=== PATIENT | male | born 1945 | race Caucasian/White ===

== ENCOUNTER → 2017-03-13 | Outpatient (CLI) | payer MEDICARE, BC ==
--- NOTE | 2017-03-13 09:58 | RADIOLOGY REPORT (SQ) ---
EXAM DESCRIPTION: MRI LT UPPER JOINT WITHOUT COMPLETED DATE/TIME: 03/13/2017 9:41 am REASON FOR STUDY: M25.512 PAIN IN LEFT SHOULDER M25.512 PAIN IN LEFT SHOULDER COMPARISON: None. TECHNIQUE: Left shoulder images acquired and stored on PACS. Multiplanar imaging to include fat sens itive sequences such as T1, water sensitive sequences such as FST2/STIR, cartilage sensitive sequence s such as FSPD/gradient-echo sequences. LIMITATIONS: None. FINDINGS: BONE MARROW AND CORTEX: Mild artifact in the humeral head related to previous cuff surgery . Heterogeneous somewhat geographic appearing signal in the superior humeral head may reflect subtle AVN, somewhat serpiginous signal without overlying fracture or articular surface collapse. JOINT OR BURSAL EFFUSION: No significant joint or bursal fluid. No suggestion of loose bodies. GLENO-HUMERAL ARTICULATION: Superior migration humeral head. Mild inferior humeral osteophyte format ion. Areas of chondral thinning, most notable in the central glenoid and along the superior humeral head. ACROMION AND AC JOINT: No widening. Osseous remodeling of the undersurface of the acromion, comple te loss of the subacromial space. ROTATOR CUFF AND INTERVAL: Full-thickness full width cuff tear, supraspinatus and infraspinatus. Pro bable atrophy, however given the degree of retraction this is difficult to further assess. LABRUM AND BICEPS LABRAL COMPLEX: Limited assessment given the complete cuff tear, loss of the uppe r joint space and lack of joint distention. Probable torn superior labrum. Suspect biceps tendon is intact, but difficult to visualize. REMAINDER OF LABRUM AND IGHL : Tear likely extends into the posterior and inferior labrum. No gross paralabral cyst. PERIARTICULAR AND ADJACENT SOFT TISSUES: No masses or abnormal nodes. OTHER: No other significant finding. IMPRESSION: 1. Full-thickness full with recurrent rotator cuff tear with atrophy and retraction. 2. Poor assessment of the superior labrum. Suspect SLAP tear. Biceps tendon is likely intact. Tear o f the posterior and inferior labrum also likely. TECHNICAL DOCUMENTATION: JOB ID: [id number] [employer]- All Rights Reserved
== END ==
LOC: RAD 08:46
PROVIDERS: ATTEND Orthopaedic Surgery Sports Medicine
DX: M25.512 Pain in left shoulder (principal); M75.122 Complete rotator cuff tear or rupture of left shoulder, not specified as traumatic

== ENCOUNTER 2018-01-06 05:21 | Day surgery (SDC) | payer MEDICARE, BC ==
[~2018-01-06 05:21] MED LIST: ACETAMINOPHEN 325 MG TABLET PO PRN; CEFAZOLIN 1 GM/D5W RTU 1 GM/50 ML RTUPB IV PRN
[2018-01-06] MEDS ORDERED: CEFAZOLIN 1 GM/D5W RTU 1 GM/50 ML RTUPB IV ONE (05:41)
--- NOTE | 2018-01-06 06:08 | RADIOLOGY REPORT (SQ) ---
EXAM DESCRIPTION: X-ray single view chest. CLINICAL HISTORY: 72 years Male, preop port placement COMPARISON: None. TECHNIQUE: Single portable view of the chest performed on 01/06/2018 at 6:00 AM FINDINGS: The lungs are well expanded and are clear. There are pleural calcifications along the diaphragmatic surface of the left hemithorax and there are pleural plaques projecting over the right hemithorax. There is no evidence of a pneumothorax. The cardiac silhouette is normal in size and configuration. There are atherosclerotic calcifications along the thoracic aorta. The mediastinal contours are normal. No acute osseous abnormality is identified. No focal soft tissue abnormalities are seen. Lines and tubes: None. IMPRESSION: 1. No definite acute intrathoracic disease. 2. 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
[2018-01-06] MEDS ORDERED: ONDANSETRON HCL INJ/PF 4 MG/2 ML SDV ONE (06:15)
[2018-01-06] MEDS ORDERED: LIDOCAINE 2% INJ-PF (20 MG/ML) 10 ML AMPUL ONE (06:15)
[2018-01-06] MEDS ORDERED: MIDAZOLAM 2 MG/2 ML INJ ONE (06:15)
[2018-01-06] MEDS ORDERED: FENTANYL CITRATE INJ/PF 100 MCG/2 ML AMPUL ONE (06:15)
[2018-01-06] MEDS ORDERED: PROPOFOL INJ 200 MG/20 ML VIAL IV ONE (06:16)
[2018-01-06] MEDS ORDERED: FENTANYL CITRATE INJ/PF 100 MCG/2 ML AMPUL IV PRN ×3 (06:56)
[2018-01-06] MEDS ORDERED: MORPHINE SULFATE 10 MG/ML INJ IV PRN (06:56)
[2018-01-06] MEDS ORDERED: DIPHENHYDRAMINE HCL 50 MG/ML VIAL IV PRN (06:56)
[2018-01-06] MEDS ORDERED: MEPERIDINE HCL/PF INJ 25 MG/1 ML DISP.SYRIN IV PRN (06:56)
[2018-01-06] MEDS ORDERED: PROMETHAZINE HCL INJ 25 MG/1 ML VIAL IV PRN ×2 (06:56)
[2018-01-06] MEDS ORDERED: ONDANSETRON HCL INJ/PF 4 MG/2 ML SDV IV PRN (06:56)
[2018-01-06] MEDS ORDERED: LIDOCAINE 1%/EPINEPHRINE INJ 20 ML VIAL ONE (07:21)
[2018-01-06 07:31] LABS: ABSOLUTE EOSINOPHILS # (AUTO) 0.5 10^3/uL (0.0-0.6); ABSOLUTE LYMPHOCYTES (AUTO) 1.2 10^3/uL (0.5-4.7); ABSOLUTE MONOCYTES (AUTO) 1.1 10^3/uL (0.1-1.4); ABSOLUTE NEUT (AUTO) 9.4 10^3/uL (1.7-8.2); BASOPHILS % (AUTO) 0.3 % (0-2); EOSINOPHILS % (AUTO) 3.9 % (0-6); HEMATOCRIT 26.7 % (37.9-51.0); LYMPHOCYTES % (AUTO) 9.8 % (13-45); MEAN CORPUSCULAR HGB CONC 33.6 g/dL (32.0-36.0); MEAN CORPUSCULAR VOLUME 92 fl (80-97); MONOCYTES % (AUTO) 9.3 % (3-13); PLATELET COUNT 390 10^3/uL (150-450); RED BLOOD COUNT 2.89 10^6/uL (4.35-5.55); SEGMENTED NEUTROPHILS % (AUTO) 76.7 % (42-78); TOTAL CELLS COUNTED % (AUTO) 100 %; WHITE BLOOD COUNT 12.3 10^3/uL (4.0-10.5)
--- NOTE | 2018-01-06 08:12 | Discharge Summary ---
Discharge Summary (SDC) - Discharge Final Diagnosis: Pancreatic carcinoma Date of Surgery: 01/06/18 Discharge Date: 01/06/18 Condition: Good Treatment or Instructions: May use catheter this week; follow-up with [facility] in 1-2 weeks; resume preoperative activities as previously planned Referrals: MARIKA RIGGS MD [Primary Care Provider] - Discharge Diet: As Tolerated Discharge Activity: Activity As Tolerated Home Care Assistance: None Needed Report the Following to Your Physician Immediately: Shortness of Breath, Increase in Pain, Fever over 101 Degrees
--- NOTE | 2018-01-06 08:16 | Operative Report ---
Operative Report DATE OF SURGERY: 01/06/18 PREOPERATIVE DIAGNOSIS: Pancreatic carcinoma POSTOPERATIVE DIAGNOSIS: Same OPERATION: 1. Placement of left subclavian Gfydxi-[id number]-Gtnk catheter, dual- chamber. 2. Interpretation of intraoperative fluoroscopy SURGEON: COOKIE RIVERA ANESTHESIA: LMAC TISSUE REMOVED OR ALTERED: None COMPLICATIONS: None ESTIMATED BLOOD LOSS: Scant INTRAOPERATIVE FINDINGS: See below PROCEDURE: Patient was taken from the preop holding area the main operating room where he was placed in supine position, arms tucked, cervical spine extended, and the chest and neck prepped and draped in sterile fashion. Surgical plan surgical timeout were conducted. Suitable site for placement of port was chosen left subclavian position. Skin was anesthetized with plain 1 percent lidocaine. Using Seldinger technique, the left subclavian vein was directly cannulated with a 16-gauge needle and a wire threaded into the deep venous system. A suitable site for placement of the port was chosen below this area proximal 0.4 cm. Skin was anesthetized with 1% plain lidocaine, a 3 cm incision was made horizontally with a #10 blade, and a port pocket developed large enough to accommodate dual-chamber port was developed using electrocautery, blunt dissection. The 9 [place] catheter was then trimmed to the appropriate length, tunnel between the 2 incisions, attached to the port with the plastic ring, and the port tucked into the left subclavian pocket. Under fluoroscopic guidance, the 9 [place]ian dilator introducer sheath were threaded over the wire, wire and dilator removed, threaded into the strip away sheath and strip away sheath removed leaving the catheter in excellent position by fluoroscopic evaluation. The tip was in the superior vena cava right atrial junction there was no kinking in the subclavian area. Catheter was aspirated and flushed with heparinized saline. There was good blood flow through both lumens. Wounds closed with 3-0 Vicryl benzoin Steri- Strips. Patient tolerated procedure well, taken recovery in stable condition. Portable upright chest x-ray pending time dictation
--- NOTE | 2018-01-06 09:11 | RADIOLOGY REPORT (SQ) ---
EXAM DESCRIPTION: CHEST SINGLE VIEW COMPLETED DATE/TIME: 01/06/2018 8:36 am REASON FOR STUDY: s/p cxr COMPARISON: 01/06/2018 EXAM PARAMETERS: NUMBER OF VIEWS: One view. TECHNIQUE: Single frontal radiographic view of the chest acquired. RADIATION DOSE: NA LIMITATIONS: None. FINDINGS: LUNGS AND PLEURA: No opacities, masses or pneumothorax. No pleural effusion. Calcified pl eural plaques are again identified overlying the left hemidiaphragm. Pleural plaques are again ident ified in the right hemithorax. MEDIASTINUM AND HILAR STRUCTURES: No masses. Contour normal. HEART AND VASCULAR STRUCTURES: Heart normal in size. Normal vasculature. BONES: No acute findings. HARDWARE: Port-A-Cath is identified with its tip the level of the superior vena cava P OTHER: No other significant finding. IMPRESSION: Status post insertion of a Port-A-Cath as noted above. No pneumothorax is seen. Other findings as noted above TECHNICAL DOCUMENTATION: JOB ID: [id number] [employer]- All Rights Reserved Reading location - IP/workstation name: [email or web address]
--- NOTE | 2018-01-06 09:31 | RADIOLOGY REPORT (SQ) ---
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 FLUOROSCOPY TIME: 0.1 minute Spot images saved to PACS. TECHNIQUE: Intra-operative images acquired during surgical procedure to evaluate progress. NUMBER OF IMAGES: 3 LIMITATIONS: None. FINDINGS: Fluoroscopy was provided for intraoperative procedure. Please refer to the operative repo rt for further discussion. IMPRESSION: IMAGE(S) OBTAINED DURING PROCEDURE. COMMENT: Quality ID 145: Final reports for procedures using fluoroscopy that document radiation exp osure indices, or exposure time and number of fluorographic images (if radiation exposure indices are not available) Please consult full operative report of the attending physician for description of the procedure. TECHNICAL DOCUMENTATION: JOB ID: [id number] [employer]- All Rights Reserved Reading location - IP/workstation name: [email or web address]
[2018-01-06 10:52] VITALS: BP 126/73
== END 2018-01-06 09:55 | disposition home or self-care (01) ==
LOC: OROUT 05:21
PROVIDERS: ATTEND Surgery
DX: C25.9 Malignant neoplasm of pancreas, unspecified (principal); Z96.642 Presence of left artificial hip joint; E78.00 Pure hypercholesterolemia, unspecified; R01.1 Cardiac murmur, unspecified; M19.90 Unspecified osteoarthritis, unspecified site; N50.9 Disorder of male genital organs, unspecified; E11.9 Type 2 diabetes mellitus without complications; I10 Essential (primary) hypertension; Z87.891 Personal history of nicotine dependence; Z79.82 Long term (current) use of aspirin; Z79.899 Other long term (current) drug therapy
CPT/HCPCS: 36561; 36415; 82947; 85025; 71045; 77001; C1788; C1752; J2250; J0690; J3010; J3490 ×2; J2405; J2704; J1642; 532

== ENCOUNTER → 2018-02-18 | Outpatient (CLI) | payer MEDICARE, BC ==
--- NOTE | 2018-02-18 14:30 | RADIOLOGY REPORT (SQ) ---
EXAM DESCRIPTION: CT CHEST WITH; CT ABD/PELVIS WITH IV ORAL COMPLETED DATE/TIME: 02/18/2018 1:50 pm REASON FOR STUDY: PANCREATIC CA (C25.0) C25.0 MALIGNANT NEOPLASM OF HEAD OF PANCREAS abnormal liver function tests, increasing bilirubin COMPARISON: MRI abdomen 11/25/2017 [facility] CT chest without contrast 11/14/2017, 03/03/2015 [facility] CT abdomen pelvis 12/01/2013 here CONTRAST TYPE AND DOSE: contrast/concentration: Isovue 350.00 mg/ml; Total Contrast Delivered: 100.0 ml; Total Saline Delivered: 72.0 ml RENAL FUNCTION: Creatinine 0.7 TECHNIQUE: CT scan of the chest performed using helical scanning technique with dynamic intravenous contrast injection. Images reviewed with lung, soft tissue and bone windows. Reconstructed coronal a nd sagittal MPR images reviewed. All images stored on PACS. CT scan of the abdomen and pelvis performed with intravenous and without oral contrastusing helical s rimma technique with dynamic intravenous contrast injection. Images reviewed with lung, soft tissu e and bone windows. Reconstructed coronal and sagittal MPR images reviewed. Delayed images for eval uation of the urinary system also acquired and evaluated. All images stored on PACS. All CT scanners at this facility use dose modulation, iterative reconstruction, and/or weight based d osing when appropriate to reduce radiation dose to as low as reasonably achievable (ALARA). [facility]: Dose Right [facility]: CareDose [facility]: Dose Right [facility]: Teradose 4D [facility]: Smart Technologies RADIATION DOSE: CT Rad equipment meets quality standard of care and radiation dose reduction techniq ues were employed. CTDIvol: 9.1 - 11.8 mGy. DLP: 1693 mGy-cm. . LIMITATIONS: None. FINDINGS: CHEST: LUNGS AND PLEURA: No acute infiltrates. No pleural effusion or pneumothorax. No worrisome pulmonary nodules. On axial image 54, a 6 mm benign nodule in the right lower lobe is u nchanged from studies dating back to 2014. There are multiple dense pleural calcific plaques bilaterally unchanged. HILAR AND MEDIASTINAL STRUCTURES: No identified masses or abnormal nodes. HEART AND VASCULAR STRUCTURES: Calcified aortic valve and coronary arteries. No cardiomegaly. No pe ricardial effusion HARDWARE: Left permanent central line tip superior vena cava. THYROID AND OTHER SOFT TISSUES: No masses. No adenopathy. BONES: No significant finding. OTHER: Small hiatal hernia. ABDOMEN AND PELVIS: LIVER: There is new intrahepatic moderate biliary ductal dilatation compared to previous studies. Ga llbladder is distended. Common bile duct is distended down to the pancreatic head mass. On axial series 3, image 9/103, a 12 mm nodule is present in the sub- diaphragmatic surface left lobe liver. It is difficult to discern if this is a new finding, prior MRI has motion artifact, prior CT chest exam did not have IV contrast. SPLEEN: Normal size. No focal lesions. PANCREAS: In the pancreatic head, a 4.4 x 4.1 cm mass is present on axial image 26/103 (was 2.8 cm di ameter on CT chest 11/14/2017). This effaces the distal common bile duct. Remainder the pancreas is atrophic with a dilated pancreatic duct. No peripancreatic fluid worrisome for acute pancreatitis. There is mild narrowing of the superior mesenteric vein as it passes around the tumor at the pancreat ic head. There are surgical metallic clips in the pancreatic head on axial image 26. GALLBLADDER: Distended. No gallbladder wall thickening or gross CT evidence of stones ADRENAL GLANDS: No significant masses or asymmetry. RIGHT KIDNEY AND URETER: No solid masses. Multiple small right-sided intrarenal nonobstructive calcu li are present. No hydronephrosis or hydroureter. LEFT KIDNEY AND URETER: No solid masses. Multiple small right-sided intrarenal nonobstructive calcul i are present. No hydronephrosis or hydroureter. AORTA AND VESSELS: No aneurysm. No dissection. Renal arteries, SMA, celiac without stenosis. RETROPERITONEUM: No retroperitoneal adenopathy, hemorrhage or masses. BOWEL AND PERITONEAL CAVITY: No masses or inflammatory changes. No free fluid or peritoneal masses. APPENDIX: Normal. ABDOMINAL WALL: No masses. No hernias. PELVIS: No mass or free fluid. Normal bladder. BONES: No significant or acute findings. OTHER: No other significant finding. IMPRESSION: Enlargement of the pancreatic tumor with mass effect on the distal common bile duct, wit h new biliary ductal dilatation and distention of the gallbladder. 12 mm nodule sub- diaphragmatic surface left lobe liver worrisome for liver metastatic nodule No CT evidence of metastatic disease to the chest TECHNICAL DOCUMENTATION: JOB ID: [id number] Quality ID # 436: Final reports with documentation of one or more dose reduction techniques (e.g., Au tomated exposure control, adjustment of the mA and/or kV according to patient size, use of iterative reconstruction technique) 2010 [employer]- All Rights Reserved Reading location - IP/workstation name: [email or web address]
== END ==
LOC: RAD 12:57
PROVIDERS: ATTEND Internal Medicine
DX: C25.0 Malignant neoplasm of head of pancreas (principal); N20.0 Calculus of kidney
CPT/HCPCS: 71260; 74177

== ENCOUNTER → 2018-04-29 | Outpatient (CLI) | payer MEDICARE, BC ==
--- NOTE | 2018-04-29 08:41 | RADIOLOGY REPORT (SQ) ---
EXAM DESCRIPTION: CT CHEST WITH; CT ABD/PELVIS WITH IV ORAL COMPLETED DATE/TIME: 04/29/2018 8:17 am REASON FOR STUDY: PANCREATIC CA (C25.0) C25.0 MALIGNANT NEOPLASM OF HEAD OF PANCREAS COMPARISON: CT chest abdomen pelvis 02/18/2018 CT abdomen pelvis 12/01/2013 CONTRAST TYPE AND DOSE: contrast/concentration: Isovue 350.00 mg/ml; Total Contrast Delivered: 100.0 ml; Total Saline Delivered: 72.0 ml RENAL FUNCTION: Creatinine 0.82 TECHNIQUE: CT scan of the chest performed using helical scanning technique with dynamic intravenous contrast injection. Images reviewed with lung, soft tissue and bone windows. Reconstructed coronal a nd sagittal MPR images reviewed. All images stored on PACS. CT scan of the abdomen and pelvis performed with intravenous and with oral contrastusing helical scan jorge technique with dynamic intravenous contrast injection. Images reviewed with lung, soft tissue a nd bone windows. Reconstructed coronal and sagittal MPR images reviewed. Delayed images for evaluat ion of the urinary system also acquired and evaluated. All images stored on PACS. All CT scanners at this facility use dose modulation, iterative reconstruction, and/or weight based d osing when appropriate to reduce radiation dose to as low as reasonably achievable (ALARA). [facility]: Dose Right [facility]: CareDose [facility]: Dose Right [facility]: Teradose 4D [facility]: Smart [employer] RADIATION DOSE: CT Rad equipment meets quality standard of care and radiation dose reduction techniq ues were employed. CTDIvol: 8.5 - 11.8 mGy. DLP: 1647 mGy-cm. . LIMITATIONS: None. FINDINGS: CHEST: LUNGS AND PLEURA: Calcific pleural plaques bilaterally. No worrisome pulmonary nodules. No acute in filtrate. No pleural effusion or pneumothorax. HILAR AND MEDIASTINAL STRUCTURES: No identified masses or abnormal nodes. Small hiatal hernia. HEART AND VASCULAR STRUCTURES: No aneurysm or dissection. No central pulmonary emboli. No pericardi al effusion. Heavily calcified coronary arteries and aortic valve. HARDWARE: None. THYROID AND OTHER SOFT TISSUES: No masses. No adenopathy. BONES: No significant finding. OTHER: No other significant finding. ABDOMEN AND PELVIS: LIVER: Normal size. No masses. No dilated ducts. There is air within biliary structures left lobe l iver related to a patent wall stent in the common duct SPLEEN: Normal size. No focal lesions. PANCREAS: 4 x 4 cm pancreatic head mass is essentially unchanged accounting for differences in techni que as compared to 02/18/2018. Wall stent through the pancreatic head is patent. The pancreatic body and tail is atrophic without surrounding inflammatory change GALLBLADDER: No identified stones by CT criteria. No inflammatory changes to suggest cholecystitis. ADRENAL GLANDS: No significant masses or asymmetry. RIGHT KIDNEY AND URETER: No solid masses. Multiple tiny less than 5 mm intrarenal nonobstructive kid morgan stones. No hydronephrosis or hydroureter. LEFT KIDNEY AND URETER: No solid masses. 1 cm cyst left mid pole kidney. Multiple tiny less than 5 mm intrarenal nonobstructive kidney stones. No hydronephrosis or hydroureter. AORTA AND VESSELS: No aneurysm. No dissection. Renal arteries, SMA, celiac without stenosis. RETROPERITONEUM: No retroperitoneal adenopathy, hemorrhage or masses. BOWEL AND PERITONEAL CAVITY: Patient drank oral contrast. No CT evidence of bowel obstruction. Mode rate stool throughout the colon APPENDIX: Normal. ABDOMINAL WALL: No masses. No hernias. PELVIS: No mass or free fluid. Normal bladder. BONES: Left total hip replacement OTHER: No other significant finding. IMPRESSION: Persistent stable pancreatic head mass with wall stent in the distal common duct. No CT evidence of distant metastatic disease TECHNICAL DOCUMENTATION: JOB ID: [id number] Quality ID # 436: Final reports with documentation of one or more dose reduction techniques (e.g., Au tomated exposure control, adjustment of the mA and/or kV according to patient size, use of iterative reconstruction technique) 2010 [employer]- All Rights Reserved Reading location - IP/workstation name: [email or web address]
== END ==
LOC: RAD 07:35
PROVIDERS: ATTEND Internal Medicine Hematology & Oncology
DX: C25.0 Malignant neoplasm of head of pancreas (principal)
CPT/HCPCS: 71260; 74177

== ENCOUNTER → 2018-10-13 | Outpatient (CLI) | payer MEDICARE, BC ==
--- NOTE | 2018-10-13 15:13 | RADIOLOGY REPORT (SQ) ---
EXAM DESCRIPTION: CT CHEST WITH COMPLETED DATE/TIME: 10/13/2018 9:54 am REASON FOR STUDY: (C25.0)MALIGNANT NEOPLASM OF HEAD AND PANCREAS C25.0 MALIGNANT NEOPLASM OF HEAD O F PANCREAS COMPARISON: 07/14/2018 TECHNIQUE: CT scan of the chest performed using helical scanning technique with dynamic intravenous contrast injection. Images reviewed with lung, soft tissue and bone windows. Reconstructed coronal and sagittal MPR and MIP images reviewed. All images stored on PACS. All CT scanners at this facility use dose modulation, iterative reconstruction, and/or weight based d osing when appropriate to reduce radiation dose to as low as reasonably achievable (ALARA). [facility]: Dose Right [facility]: CareDose [facility]: Dose Right [facility]: Teradose 4D [facility]: [employer] CONTRAST TYPE AND DOSE: 100 mL Omnipaque 350- low osmolar. RENAL FUNCTION: Creatinine 0.8 RADIATION DOSE: . LIMITATIONS: None. FINDINGS: LUNGS AND PLEURA: Calcified pleural plaques. There is a 6 x 10 mm nodule in the left base on image 95. There is mild bronchiectasis in the lower lobes. HILAR AND MEDIASTINAL STRUCTURES: No identified masses or abnormal nodes. HEART AND VASCULAR STRUCTURES: No aneurysm or dissection. No central pulmonary emboli. No pericardi al effusion. HARDWARE: Injection port on the left. UPPER ABDOMEN: See separate report of the CT of the abdomen. THYROID AND OTHER SOFT TISSUES: No masses. No adenopathy. BONES: No significant finding. OTHER: No other significant finding. IMPRESSION: There is a 6 x 10 mm left lower lobe nodule that is not identified on the earlier study. Calcified pleural plaques. Mild bronchiectasis. TECHNICAL DOCUMENTATION: JOB ID: [id number] Quality ID # 436: Final reports with documentation of one or more dose reduction techniques (e.g., Au tomated exposure control, adjustment of the mA and/or kV according to patient size, use of iterative reconstruction technique) 2010 [employer]- All Rights Reserved Reading location - IP/workstation name: [email or web address]
--- NOTE | 2018-10-13 15:24 | RADIOLOGY REPORT (SQ) ---
EXAM DESCRIPTION: CT ABD/PELVIS WITH IV ORAL COMPLETED DATE/TIME: 10/13/2018 9:54 am REASON FOR STUDY: (C25.0)MALIGNANT NEOPLASM OF HEAD AND PANCREAS C25.0 MALIGNANT NEOPLASM OF HEAD O F PANCREAS COMPARISON: 07/14/2018 TECHNIQUE: CT scan of the abdomen and pelvis performed using helical scanning technique with dynamic intravenous contrast injection. Oral contrast. Images reviewed with lung, soft tissue, and bone win dows. Reconstructed coronal and sagittal MPR images reviewed. Delayed images for evaluation of the ur inary system also acquired. All images stored on PACS. All CT scanners at this facility use dose modulation, iterative reconstruction, and/or weight based d osing when appropriate to reduce radiation dose to as low as reasonably achievable (ALARA). [facility]: Dose Right [facility]: CareDose [facility]: Dose Right [facility]: Teradose 4D [facility]: [employer] CONTRAST TYPE AND DOSE: contrast/concentration: Isovue 350.00 mg/ml; Total Contrast Delivered: 100.0 ml; Total Saline Delivered: 72.0 ml RENAL FUNCTION: Creatinine 0.8 RADIATION DOSE: CT Rad equipment meets quality standard of care and radiation dose reduction techniq ues were employed. CTDIvol: 10.2 - 14.9 mGy. DLP: 2118 mGy-cm.. LIMITATIONS: None. FINDINGS: LOWER CHEST: No significant findings. No nodules or infiltrates. LIVER: No masses. There is air in the ducts secondary to the presence a common bile duct stent. SPLEEN: Normal size. No focal lesions. PANCREAS: The mass in the head of the pancreas measures 17.9 x 21 mm. The body and tail of the pancr eas are atrophic. GALLBLADDER: No identified stones by CT criteria. No inflammatory changes to suggest cholecystitis. ADRENAL GLANDS: No significant masses or asymmetry. RIGHT KIDNEY AND URETER: No solid masses. There are tiny nonobstructing intrarenal calculi. No hy dronephrosis or hydroureter. LEFT KIDNEY AND URETER: No solid masses. There are tiny nonobstructing intrarenal calculi. No hyd ronephrosis or hydroureter. AORTA AND VESSELS: No aneurysm. No dissection. Renal arteries, SMA, celiac without stenosis. RETROPERITONEUM: No retroperitoneal adenopathy, hemorrhage or masses. BOWEL AND PERITONEAL CAVITY: No masses or inflammatory changes. No free fluid or peritoneal masses. APPENDIX: Normal. PELVIS: No mass. No free fluid. Normal bladder. ABDOMINAL WALL: No masses. No hernias. BONES: Left hip arthroplasty. No osseous lesions. OTHER: No other significant finding. IMPRESSION: The mass in the head of the pancreas appears slightly smaller. Findings as described. TECHNICAL DOCUMENTATION: JOB ID: [id number] Quality ID # [id number]: Final reports with documentation of one or more dose reduction techniques (e.g., Au tomated exposure control, adjustment of the mA and/or kV according to patient size, use of iterative reconstruction technique) 2010 [employer]- All Rights Reserved Reading location - IP/workstation name: [email or web address]
== END ==
LOC: RAD 09:33
PROVIDERS: ATTEND Physician Assistant Medical
DX: C25.0 Malignant neoplasm of head of pancreas (principal)
CPT/HCPCS: 71260; 74177; 82565

== ENCOUNTER 2019-02-20 11:17 | Inpatient (IN) | payer MEDICARE, BC ==
--- NOTE | 2019-02-20 11:52 | ER Document Report ---
ED Medical Screen (RME) - General Chief Complaint: Fever Stated Complaint: FEVER/POST SURGERY Time Seen by Provider: 02/20/19 11:46 Primary Care Provider: JOSE D GUY PA-C [Primary Care Provider] - Follow up as needed Notes: Patient is a 73-year-old male with a history of pancreatic cancer and diabetes who presents emergency department with a chief complaint of fever. Patient reports waking up this morning with 100.3 fever. Patient reports he did take Tylenol. Patient reports his last chemotherapy was January 22 as he was told he had to stop because he is having surgery at [place] on the March 05. Patient reports since starting chemo his heart rate is always elevated in the 130s. Patient denies chest pain, shortness of breath, abdominal pain, nausea, vomiting or diarrhea. Patient denies sick contacts. TRAVEL OUTSIDE OF THE [place] IN LAST 30 DAYS: No - Related Data Allergies/Adverse Reactions: No Known Allergies Allergy (Verified 01/06/18 06:05) Past Medical History - Social History Chew tobacco use (# tins/day): No Frequency of alcohol use: Rare Drug Abuse: None - Past Medical History Cardiac Medical History: Reports: Hx Hypercholesterolemia, Hx Hypertension - ON MEDS Denies: Hx Atrial Fibrillation, Hx Congestive Heart Failure, Hx Coronary Artery Disease, Hx Heart Attack, Hx Peripheral Vascular Disease, Hx Heart Murmur Pulmonary Medical History: Reports: Hx Pneumonia - 30 YEARS AGO Denies: Hx Asthma, Hx Bronchitis, Hx COPD, Hx Tuberculosis Neurological Medical History: Denies: Hx Cerebrovascular Accident, Hx Seizures Endocrine Medical History: Renal/ Medical History: Malignancy Medical History: GI Medical History: Denies: Hx Hepatitis, Hx Hiatal Hernia, Hx Ulcer Musculoskeltal Medical History: Reports Hx Arthritis - MILD Psychiatric Medical History: Traumatic Medical History: Infectious Medical History: Denies: Hx Hepatitis Past Surgical History: Reports: Hx Herniorrhaphy - Lt inguinal hernia, Hx Orthopedic Surgery - left shoulder, left hip replacement 06/04/11. Denies: Hx Appendectomy, Hx Bowel Surgery, Hx Cholecystectomy, Hx Coronary Artery Bypass Graft, Hx Gastric Bypass Surgery, Hx Open Heart Surgery, Hx Pacemaker, Hx Tonsillectomy - Immunizations Hx Diphtheria, Pertussis, Tetanus Vaccination: Yes Physical Exam - Vital signs Vitals: Temp Pulse Resp BP Pulse Ox 98.0 F 128 H 20 134/64 H 94 02/20/19 11:22 12/06/19 11:22 02/20/19 11:22 02/20/19 11:22 02/20/19 11:22 Course - Re-evaluation Re-evalutation: 02/20/19 11:52 I have greeted and performed a rapid initial assessment of this patient. A comprehensive ED assessment and evaluation of the patient, analysis of test re sults and completion of the medical decision making process will be conducted by additional ED providers. - Vital Signs Vital signs: Temp Pulse Resp BP Pulse Ox 98.0 F 128 H 20 134/64 H 94 02/20/19 11:38 02/20/19 11:38 02/20/19 11:38 02/20/19 11:38 02/20/19 11:38 Doctor's Discharge - Discharge Referrals: JOSE D GUY, PACatarinaC [Primary Care Provider] - Follow up as needed
[2019-02-20 12:27] LABS: APPEARANCE,URINE CLEAR; BILIRUBIN,URINE NEGATIVE (NEGATIVE); COLOR,URINE YELLOW; GLUCOSE, URINE NEGATIVE (NEGATIVE); KETONES,URINE NEGATIVE (NEGATIVE); LEUKOCYTE ESTERASE,URINE NEGATIVE (NEGATIVE); NITRITE,URINE NEGATIVE (NEGATIVE); PROTEIN,URINE NEGATIVE (NEGATIVE); URINE SPECIFIC GRAVITY 1.017; UROBILINOGEN,URINE NEGATIVE mg/dL (<2.0)
[2019-02-20 12:34] LABS: HEMOGLOBIN 12.9 g/dL (13.5-17.0); MEAN CORPUSCULAR HEMOGLOBIN 29.7 pg (27.0-33.4); MEAN CORPUSCULAR HGB CONC 33.1 g/dL (32.0-36.0); MEAN CORPUSCULAR VOLUME 90 fl (80-97); PLATELET COUNT 282 10^3/uL (150-450); RED BLOOD COUNT 4.34 10^6/uL (4.35-5.55); RED CELL DISTRIBUTION WIDTH 18.8 % (11.5-14.0); WHITE BLOOD COUNT 16.4 10^3/uL (4.0-10.5)
[2019-02-20 12:47] LABS: ALBUMIN 4.1 g/dL (3.5-5.0); ALKALINE PHOSPHATASE 159 U/L (38-126); ANION GAP 13 (5-19); ASPARTATE AMINO TRANSFERASE 34 U/L (17-59); BILIRUBIN,DIRECT 0.1 mg/dL (0.0-0.4); BILIRUBIN,TOTAL 0.6 mg/dL (0.2-1.3); BLOOD UREA NITROGEN 21 mg/dL (7-20); CALCIUM 9.3 mg/dL (8.4-10.2); CARBON DIOXIDE 25 mmol/L (22-30); CHLORIDE 100 mmol/L (98-107); GLUCOSE 173 mg/dL (75-110); POTASSIUM 4.2 mmol/L (3.6-5.0); TOTAL PROTEIN 7.1 g/dL (6.3-8.2)
[2019-02-20 12:55] LABS: ABSOLUTE LYMPHOCYTES# (MANUAL) 1.3 10^3/uL (0.5-4.7); BASOPHILS % (MANUAL) 1 % (0-2); EOSINOPHILS % (MANUAL) 0 % (0-6); LYMPHOCYTES % (MANUAL) 8 % (13-45); MONOCYTES % (MANUAL) 6 % (3-13); SEGMENTED NEUTROPHILS % (MAN) 85 % (42-78); TOTAL CELLS COUNTED 100
[2019-02-20 12:56] LABS: ANISOCYTOSIS 2+
[2019-02-20 12:57] LABS: RBC MORPHOLOGY COMMENT NORMO-CYTIC/CHROMIC
[2019-02-20 12:58] LABS: PLATELET COMMENT ADEQUATE
[2019-02-20] MEDS ORDERED: NORMAL SALINE 1000 ML 3,000 ML IV ONE (16:25)
[2019-02-20] MEDS ORDERED: VANCOMYCIN HCL INJ 1000 MG VIAL IV ONE (16:27)
--- NOTE | 2019-02-20 16:32 | ER Document Report ---
ED General - General Chief Complaint: Fever Stated Complaint: FEVER/POST SURGERY Time Seen by Provider: 02/20/19 11:46 Primary Care Provider: JOSE D GUY PA-C [ALLIED HEALTH PROFESSIONAL] - Follow up as needed Information source: Patient, Relative - Notes: Mr. Vides is a 73 yo m w/ PMH pancreatitic Ca, and DM presenting to ED for fever. Patient states that his chemo was stopped on January 22 as he is scheduled to have a Whipple at [place] on March 05. He states that his glucose has been elevated ever since starting the chemo as well as steroids. He endorses a cough that is intermittently productive of yellowish-white sputum over the past month or 2. He denies any chest pain, difficulty breathing, abdominal pain, nausea, vomiting or diarrhea. He denies any dysuria or increased urinary frequency. Per , she states that he does appear flushed and much warmer to touch today. His temperature this morning was 100.3 orally. He took 1 Tylenol around 10 AM. Patient endorses subjective chills as well. No known ill contacts or recent travel. TRAVEL OUTSIDE OF THE [place] IN LAST 30 DAYS: No - Related Data Allergies/Adverse Reactions: No Known Allergies Allergy (Verified 01/06/18 06:05) Past Medical History - Social History Smoking Status: Never Smoker Chew tobacco use (# tins/day): No Frequency of alcohol use: Rare Drug Abuse: None Family History: Reviewed & Not Pertinent Patient has suicidal ideation: No Patient has homicidal ideation: No - Past Medical History Cardiac Medical History: Reports: Hx Hypercholesterolemia, Hx Hypertension - ON MEDS Denies: Hx Atrial Fibrillation, Hx Congestive Heart Failure, Hx Coronary Ar tiffanie Disease, Hx Heart Attack, Hx Peripheral Vascular Disease, Hx Heart Murmur Pulmonary Medical History: Reports: Hx Pneumonia - 30 YEARS AGO Denies: Hx Asthma, Hx Bronchitis, Hx COPD, Hx Tuberculosis Neurological Medical History: Denies: Hx Cerebrovascular Accident, Hx Seizures Endocrine Medical History: Renal/ Medical History: Malignancy Medical History: GI Medical History: Denies: Hx Hepatitis, Hx Hiatal Hernia, Hx Ulcer Musculoskeletal Medical History: Reports Hx Arthritis - MILD Psychiatric Medical History: Traumatic Medical History: Infectious Medical History: Denies: Hx Hepatitis Past Surgical History: Reports: Hx Herniorrhaphy - Lt inguinal hernia, Hx Orthopedic Surgery - left shoulder, left hip replacement 06/04/11. Denies: Hx Appendectomy, Hx Bowel Surgery, Hx Cholecystectomy, Hx Coronary Artery Bypass Graft, Hx Gastric Bypass Surgery, Hx Open Heart Surgery, Hx Pacemaker, Hx Tonsillectomy - Immunizations Hx Diphtheria, Pertussis, Tetanus Vaccination: Yes Hx Pneumococcal Vaccination: 03/18/14 Review of Systems - Review of Systems Constitutional: See HPI EENT: No symptoms reported Cardiovascular: No symptoms reported Respiratory: See HPI Gastrointestinal: No symptoms reported Genitourinary: No symptoms reported Male Genitourinary: No symptoms reported Musculoskeletal: No symptoms reported Skin: No symptoms reported Hematologic/Lymphatic: No symptoms reported Neurological/Psychological: No symptoms reported Physical Exam - Vital signs Vitals: Temp Pulse Resp BP Pulse Ox 98.0 F 128 H 20 134/64 H 94 02/20/19 11:22 02/20/19 11:22 02/20/19 11:22 02/20/19 11:22 02/20/19 11:22 Interpretation: Tachycardic - General General appearance: Appears well, Alert - HEENT Head: Normocephalic, Atraumatic Eyes: Normal Pupils: PERRL Mucous membranes: Dry - Respiratory Respiratory status: No respiratory distress Chest status: Nontender Breath sounds: Normal Chest palpation: Normal - Cardiovascular Rhythm: Regular Heart sounds: Normal auscultation Murmur: No - Abdominal Inspection: Normal Distension: No distension Bowel sounds: Normal Tenderness: Nontender Organomegaly: No organomegaly - Back Back: Normal, Nontender - Extremities General upper extremity: Normal inspection, Nontender, Normal color, Normal ROM, Normal temperature General lower extremity: Normal inspection, Nontender, Normal color, Normal ROM, Normal temperature, Normal weight bearing. No: Teresa's sign - Neurological Neuro grossly intact: Yes Cognition: Normal Orientation: AAOx4 Alex Coma Scale Eye Opening: Spontaneous [place] Coma Scale Verbal: Oriented Alex Coma Scale Motor: Obeys Commands [place] Coma Scale Total: 15 Speech: Normal Motor strength normal: LUE, RUE, LLE, RLE Sensory: Normal - Psychological Associated symptoms: Normal affect, Normal mood - Skin Skin Temperature: Hot Skin Moisture: Dry Skin Color: Normal, Flushed Course - Re-evaluation Re-evalutation: Patient is generally well-appearing and nontoxic. Initial vitals notable for tachycardia. I personally rechecked patient's temperature at the bedside and it was 99.9 orally. Should a core temperature be obtained, would likely be febrile. In addition this is likely driving up his heart rate. Concern for se psis physiology. Differential diagnosis includes sepsis, pneumonia, UTI, immunocompromise state. 02/20/19 16:32 Some labs were ordered from triage however several were missing including lactate, blood cultures and chest x-ray. Patient ordered for broad-spectrum antibiotics with vancomycin and Zosyn as he has no allergies. Patient's chest x-ray was also ordered given his report of cough. Patient will be ordered for 3 L of fluid given he is 100 kg and needs a sepsis bolus of 30 mL/kg. Given lactic acidosis. CBC notable for leukocytosis 16.9 with a left shift. H&H is stable. CMP within normal limits although there is evidence of hyperglycemia however the patient states that he is glucoses have been running higher ever since he was initiated on chemo and steroids for his cancer. Lipase is slightly elevated in the 400s however this is not consistent with chronic pancreatitis and the patient does have known history of pancreatic cancer. 02/20/19 18:45 Spoke to Adrianne Zavaleta. Stated that given that there is no source she would like a CT of the chest and CT of the abdomen to further delineate the infectious process. Calos both CTs have been ordered. I also updated the patient regarding further imaging and the need for admission for treatment of sepsis and fever in an immunocompromised patient. 02/20/19 20:[address] Perkins. Will admit to telemetry for sepsis of unknown origin in an immunocompromised patient. - Vital Signs Vital signs: Temp Pulse Resp BP Pulse Ox 98.1 F 112 H 17 115/53 L 94 02/20/19 20:58 02/20/19 20:58 02/20/19 20:58 02/20/19 20:58 02/20/19 20:58 - Laboratory Result Diagrams: 02/20/19 12:02 02/20/19 12:02 Laboratory results interpreted by me: 02/20/19 02/20/19 12:02 12:02 WBC 16.4 H RBC 4.34 L Hgb 12.9 L RDW 18.8 H Seg Neuts % (Manual) 85 H Lymphocytes % (Manual) 8 L Abs Neuts (Manual) 13.9 H BUN 21 H Glucose 173 H Alkaline Phosphatase 159 H Lipase 471.2 H - EKG Interpretation by Mn EKG shows normal: Sinus rhythm, Ethel, Intervals, ST-T Waves Rate: Tachycardia Rhythm: NSR Ethel/QRS: RBBB, LAHB/LAFB Discharge - Discharge Clinical Impression: Immunocompromised patient Sepsis Qualifiers: Sepsis type: sepsis due to unspecified organism Sepsis acute organ dysfunction status: without acute organ dysfunction Qualified Code(s): A41.9 - Sepsis, unspecified organism Pancreatic cancer Qualifiers: Pancreatic malignancy location: unspecified Qualified Code(s): C25.9 - Malignant neoplasm of pancreas, unspecified Condition: Good Disposition: ADMITTED INPATIENT Admitting Provider: Gregorio (Hospitalist) Unit Admitted: Telemetry Referrals: JOSE D GUY PA-C [ALLIED HEALTH PROFESSIONAL] - Follow up as needed ED Sepsis - Sepsis Documentation Sepsis Patient: Yes - Vital Signs Interpretation: Normal - Cardiovascular Peripheral Pulse Strength: Normal Capillary refill: < 3 seconds Rhythm: Tachycardia
[2019-02-20] MEDS ORDERED: ACETAMINOPHEN 325 MG TABLET PO ONE (16:34)
[2019-02-20] MEDS ORDERED: PIPERACILLIN/TAZOBACTAM 4.5 GM VIAL IV ONE ×2 (16:49→23:29)
[2019-02-20] MEDS: PIPERACILLIN SODIUM/TAZOBACTAM 4.5 GM in NORMAL SALINE 100 ML IV SCH ×3 (16:51→23:48)
--- NOTE | 2019-02-20 18:04 | RADIOLOGY REPORT (SQ) ---
EXAM DESCRIPTION: CHEST 2 VIEWS COMPLETED DATE/TIME: 02/20/2019 5:44 pm REASON FOR STUDY: fever. on chemo COMPARISON: 01/06/2018 EXAM PARAMETERS: NUMBER OF VIEWS: two views TECHNIQUE: Digital Frontal and Lateral radiographic views of the chest acquired. RADIATION DOSE: NA LIMITATIONS: none FINDINGS: LUNGS AND PLEURA: No opacities, masses or pneumothorax. No pleural effusion. MEDIASTINUM AND HILAR STRUCTURES: No masses or contour abnormalities. HEART AND VASCULAR STRUCTURES: Heart size is borderline. No monica pulmonary edema. BONES: No acute findings. HARDWARE: Injection port is present on the left. OTHER: No other significant finding. IMPRESSION: Cardiomegaly with no monica pulmonary edema. TECHNICAL DOCUMENTATION: JOB ID: [id number] [employer]- All Rights Reserved Reading location - IP/workstation name: [email or web address]
[2019-02-20] MEDS ORDERED: CALCIUM CARBONATE 500 MG TAB.CHEW PO PRN (18:42)
--- NOTE | 2019-02-20 20:24 | RADIOLOGY REPORT (SQ) ---
CT OF THE CHEST, ABDOMEN, AND PELVIS EXAM DATE: 02/20/2019 6:39 PM SOFTWARE SUPPORT REPRESENTATIVE HISTORY: Fever. History of pancreatic cancer. COMPARISON: 12/29/2018 TECHNIQUE: CT scan of the chest, abdomen, and pelvis with IV contrast. This exam was performed according to our departmental dose-optimization program, which includes automated exposure control, adjustment of the mA and/or kV according to patient size and/or use of iterative reconstruction technique. FINDINGS: The thyroid gland is unremarkable. No mediastinal or hilar adenopathy. The heart size is normal without pericardial effusion. No consolidation, pleural effusion, or pneumothorax. There are bilateral pleural plaques. Unchanged appearance of pancreatic head with stent in situ. Mild pneumobilia. The spleen, gallbladder, adrenal glands, and kidneys are unremarkable. Tiny nonobstructing renal stones without hydronephrosis. The pelvic organs are unremarkable. No small bowel obstruction. The appendix is normal. No intraperitoneal free fluid or free air. The aorta is diffusely atherosclerotic. No aneurysm or dissection. No acute fracture is seen. Prior total left hip arthroplasty. IMPRESSION: 1. No acute findings. 2. Stable stent in the pancreatic head with mild pneumobilia. 3. Bilateral nonobstructing renal stones.
--- NOTE | 2019-02-20 20:24 | RADIOLOGY REPORT (SQ) ---
CT OF THE CHEST, ABDOMEN, AND PELVIS EXAM DATE: 02/20/2019 6:39 PM REGULATORY AFFAIRS DIRECTOR HISTORY: Fever. History of pancreatic cancer. COMPARISON: 12/29/2018 TECHNIQUE: CT scan of the chest, abdomen, and pelvis with IV contrast. This exam was performed according to our departmental dose-optimization program, which includes automated exposure control, adjustment of the mA and/or kV according to patient size and/or use of iterative reconstruction technique. FINDINGS: The thyroid gland is unremarkable. No mediastinal or hilar adenopathy. The heart size is normal without pericardial effusion. No consolidation, pleural effusion, or pneumothorax. There are bilateral pleural plaques. Unchanged appearance of pancreatic head with stent in situ. Mild pneumobilia. The spleen, gallbladder, adrenal glands, and kidneys are unremarkable. Tiny nonobstructing renal stones without hydronephrosis. The pelvic organs are unremarkable. No small bowel obstruction. The appendix is normal. No intraperitoneal free fluid or free air. The aorta is diffusely atherosclerotic. No aneurysm or dissection. No acute fracture is seen. Prior total left hip arthroplasty. IMPRESSION: 1. No acute findings. 2. Stable stent in the pancreatic head with mild pneumobilia. 3. Bilateral nonobstructing renal stones.
[2019-02-20] MEDS ORDERED: LOSARTAN POTASSIUM 25 MG TABLET PO ONE (20:53)
[2019-02-20] MEDS ORDERED: MAG HYDROX/AL HYDROX/SIMETH SUSP 30 ML UDCUP PO PRN (20:53)
[2019-02-20] MEDS ORDERED: ACETAMINOPHEN 325 MG TABLET PO PRN (20:53)
[2019-02-20] MEDS ORDERED: IPRATROPIUM/ALBUTEROL 0.5-2.5 MG/3 ML AMPUL NEB PRN (20:53)
[2019-02-20] MEDS ORDERED: LACTULOSE SYRUP 20 GM/30 ML UDCUP PO ONE (20:57)
[2019-02-20] MEDS ORDERED: NORMAL SALINE 1000 ML 1,000 ML IV SCH (21:00)
[2019-02-20] MEDS ORDERED: VANCOMYCIN HCL 0 MG in DEXTROSE 5%-WATER 250 ML IV NR (21:00)
[2019-02-20] MEDS: HEPARIN SOD (PORCINE) 5,000 UNIT/ML 1 ML VIAL SUBCUT SCH (21:48)
[2019-02-20] MEDS ORDERED: ATORVASTATIN CALCIUM 40 MG TABLET PO SCH (22:00)
[2019-02-20] MEDS ORDERED: VANCOMYCIN HCL 1,250 MG in DEXTROSE 5%-WATER 250 ML IV SCH (22:00)
[2019-02-20] MEDS: FLUTICASONE NASAL SPRAY 50 MCG/SPRY 120 SPRAY/16 GM NASL SCH (22:08)
[2019-02-20] MEDS: NORMAL SALINE 1000 ML 1,000 ML IV PRN (22:30)
--- NOTE | 2019-02-20 23:59 | EKG REPORT ---
SEVERITY:- ABNORMAL ECG - SINUS TACHYCARDIA INCOMPLETE RBBB AND LAFB : Confirmed by: Shelli Barrera MD 20-Feb-2019 23:59:06
[2019-02-21] MEDS: IPRATROPIUM/ALBUTEROL 0.5-2.5 MG/3 ML AMPUL NEB SCH ×2 (00:31→08:09)
[2019-02-21] MEDS ORDERED: NORMAL SALINE 1000 ML 1,000 ML IV PRN (02:57)
[2019-02-21] MEDS: NORMAL SALINE 1000 ML 1,000 ML IV PRN ×2 (03:14→10:05)
[2019-02-21] MEDS: HEPARIN SOD (PORCINE) 5,000 UNIT/ML 1 ML VIAL SUBCUT SCH (05:38)
[2019-02-21] MEDS: PIPERACILLIN SODIUM/TAZOBACTAM 4.5 GM in NORMAL SALINE 100 ML IV SCH ×2 (05:38→11:50)
[2019-02-21] MEDS ORDERED: VANCOMYCIN HCL 1,250 MG in DEXTROSE 5%-WATER 250 ML IV SCH (06:00)
--- NOTE | 2019-02-21 06:29 | PDOC H&P ---
History of Present Illness Admission Date/PCP: 02/20/19 20:59 MARIKA RIGGS MD Patient complains of: Fever and cough History of Present Illness: AYAN DE LA FUENTE is a 73 year old male with a past medical history of diabetes, hypertension and pancreatic cancer status post stent and chemotherapy with scheduled Whipple procedure at [place] on March 05. He presents with acute on chronic rhinorrhea, postnasal drip developing shortness of breath and a product thania cough prompting evaluation emergency room where he is found to have leukocytosis but unremarkable LFTs, CTs of the chest and abdomen negative for acute process. Given his chemotherapy and immunocompromise state he is referred to the hospitalist for admission. Patient denies recent antibiotic use. He is otherwise felt well Past Medical History Cardiac Medical History: Reports: Hyperlipidema, Hypertension - ON MEDS Denies: Atrial Fibrillation, Congestive Heart Failure, Coronary Artery Disease, Myocardial Infarction, Peripheral Vascular Disease, Heart Murmur Pulmonary Medical History: Reports: Pneumonia - 30 YEARS AGO Denies: Asthma, Bronchitis, Chronic Obstructive Pulmonary Disease (COPD), Tuberculosis Neurological Medical History: Denies: Seizures Endocrine Medical History: Renal/ Medical History: Malignancy Medical History: GI Medical History: Denies: Hepatitis, Hiatal Hernia Musculoskeltal Medical History: Reports: Arthritis - MILD Psychiatric Medical History: Hematology: Denies: Anemia, Sickle Cell Disease Infectious Medical History: Past Surgical History Past Surgical History: Reports: Herniorrhaphy - Lt inguinal hernia, Orthopedic Surgery - left shoulder, left hip replacement 06/04/11 Denies: Appendectomy, Cholecystectomy, Coronary Artery Bypass Graft, Gastric Bypass Surgery, Pacemaker, Tonsillectomy Social History Information Source: Patient Lives with: Spouse/Significant other Smoking Status: Never Smoker Electronic Cigarette use?: No Hx Recreational Drug Use: No Hx Prescription Drug Abuse: No - Advance Directive Resuscitation Status: Full Code Family History Family History: COPD Parental Family History Reviewed: Yes Children Family History Reviewed: Yes Sibling(s) Family History Reviewed.: Yes Medication/Allergy Home Medications: Atorvastatin Calcium [Lipitor 40 mg Tablet] 40 mg PO QHS 12/01/13 Losartan Potassium [Cozaar 50 mg Tablet] 25 mg PO BID 12/01/13 Ranitidine HCl [Zantac 150 mg Tablet] 1 tab PO DAILY 08/17/15 Aspirin [Ecotrin 81 mg EC Tablet] 81 mg PO DAILY 10/22/18 Metformin HCl 500 mg PO DAILY 01/06/18 Multivitamin [Multivitamins] 01/06/18 [place]-3 Fatty Acids/Fish Oil [Fish Oil 1,000 mg Capsule] 01/06/18 Allergies/Adverse Reactions: No Known Allergies Allergy (Verified 01/06/18 06:05) Review of Systems Constitutional: PRESENT: as per HPI. ABSENT: chills, fever(s), headache(s), weight gain, weight loss Eyes: ABSENT: visual disturbances Ears: ABSENT: hearing changes Cardiovascular: ABSENT: chest pain, dyspnea on exertion, edema, orthropnea, palpitations Respiratory: ABSENT: cough, hemoptysis Gastrointestinal: ABSENT: abdominal pain, constipation, diarrhea, hematemesis, hematochezia, nausea, vomiting Genitourinary: ABSENT: dysuria, hematuria Musculoskeletal: ABSENT: joint swelling Integumentary: ABSENT: rash, wounds Neurological: ABSENT: abnormal gait, abnormal speech, confusion, dizziness, focal weakness, syncope Psychiatric: ABSENT: anxiety, depression, homidical ideation, suicidal ideation Endocrine: ABSENT: cold intolerance, heat intolerance, polydipsia, polyuria Hematologic/Lymphatic: ABSENT: easy bleeding, easy bruising Physical Exam Vital Signs: Temp Pulse Resp BP Pulse Ox 99.4 F 105 H 18 112/59 L 93 02/21/19 03:54 02/21/19 03:54 02/21/19 03:54 02/21/19 03:54 02/21/19 03:54 Intake & Output 02/19/19 02/20/19 02/21/19 11:59 11:59 11:59 Intake Total 4200 Balance 4200 Weight 100.8 kg 99.79 kg General appearance: PRESENT: no acute distress, well-developed, well-nourished Head exam: PRESENT: atraumatic, normocephalic Eye exam: PRESENT: conjunctiva pink, EOMI, PERRLA. ABSENT: scleral icterus Ear exam: PRESENT: normal external ear exam Mouth exam: PRESENT: moist, tongue midline Neck exam: ABSENT: carotid bruit, JVD, lymphadenopathy, thyromegaly Respiratory exam: PRESENT: crackles, prolonged expiratory phas. ABSENT: rales, rhonchi, wheezes Cardiovascular exam: PRESENT: diastolic murmur, RRR. ABSENT: rubs, systolic murmur Pulses: PRESENT: normal dorsalis pedis pul Vascular exam: PRESENT: normal capillary refill GI/Abdominal exam: PRESENT: distended, normal bowel sounds, soft. ABSENT: guarding, mass, organolmegaly, rebound, tenderness Rectal exam: PRESENT: deferred Extremities exam: PRESENT: full ROM. ABSENT: calf tenderness, clubbing, pedal edema Neurological exam: PRESENT: alert, awake, oriented to person, oriented to place, oriented to time, oriented to situation, CN II-XII grossly intact. ABSENT: motor sensory deficit Psychiatric exam: PRESENT: appropriate affect, normal mood. ABSENT: homicidal ideation, suicidal ideation Skin exam: PRESENT: dry, intact, warm. ABSENT: cyanosis, rash Results Laboratory Results: 02/20/19 12:02/20/19 12:02/20/19 02/20/19 02/20/19 12:02 12: 12:02 WBC 16.4 H RBC 4.34 L Hgb 12.9 L Hct 39.0 MCV 90 MCH 29.7 MCHC 33.1 RDW 18.8 H Plt Count 282 Seg Neutrophils % Not Reportable Sodium 137.6 Potassium 4.2 Chloride 100 Carbon Dioxide 25 Anion Gap 13 BUN 21 H Creatinine 0.94 Est GFR ( Amer) > 60 Glucose 173 H Calcium 9.3 Total Bilirubin 0.6 AST 34 Alkaline Phosphatase 159 H Total Protein 7.1 Albumin 4.1 Lipase 471.2 H Urine Color YELLOW Urine Appearance CLEAR Urine pH 6.0 Ur Specific [place] 1.017 Urine Protein NEGATIVE Urine Glucose (UA) NEGATIVE Urine Ketones NEGATIVE Urine Blood NEGATIVE Urine Nitrite NEGATIVE Ur Leukocyte Esterase NEGATIVE Urine WBC (Auto) 1 Urine RBC (Auto) 0 Impressions: Chest X-Ray 02/20/19 16:15 IMPRESSION: Cardiomegaly with no monica pulmonary edema. Chest CT 02/20/19 18:38 IMPRESSION: 1. No acute findings. 2. Stable stent in the pancreatic head with mild pneumobilia. 3. Bilateral nonobstructing renal stones. Abdomen/Pelvis CT 02/20/19 18:39 IMPRESSION: 1. No acute findings. 2. Stable stent in the pancreatic head with mild pneumobilia. 3. Bilateral nonobstructing renal stones. Assessment and Plan - Diagnosis (1) Acute sinusitis Is this a current diagnosis for this admission?: Yes Plan: Flonase, chlorpheniramine, empiric antibiotics. (2) Acute bronchitis Is this a current diagnosis for this admission?: Yes Plan: Empiric antibiotics, incentive spirometry, follow-up CBC (3) Diabetes Is this a current diagnosis for this admission?: Yes Plan: Humalog sliding scale q. before meals (4) Immunocompromised patient Is this a current diagnosis for this admission?: Yes Plan: Secondary to chemotherapy, follow-up CBC consider cortisol levels (5) Pancreatic cancer Qualifiers: Pancreatic malignancy location: unspecified Qualified Code(s): C25.9 - Malignant neoplasm of pancreas, unspecified Is this a current diagnosis for this admission?: Yes Plan: Follow-up LFTs and lipase - Time Time Spent with patient: 25-34 minutes - Inpatient Certification Medical Necessity: Need Close Monitoring Due to Risk of Patient Decompensation
[2019-02-21 06:38] LABS: ABSOLUTE EOSINOPHILS # (AUTO) 0.1 10^3/uL (0.0-0.6); ABSOLUTE LYMPHOCYTES (AUTO) 0.7 10^3/uL (0.5-4.7); ABSOLUTE MONOCYTES (AUTO) 1.1 10^3/uL (0.1-1.4); ABSOLUTE NEUT (AUTO) 9.1 10^3/uL (1.7-8.2); BASOPHILS % (AUTO) 0.3 % (0-2); EOSINOPHILS % (AUTO) 0.7 % (0-6); HEMATOCRIT 32.1 % (37.9-51.0); HEMOGLOBIN 10.9 g/dL (13.5-17.0); LYMPHOCYTES % (AUTO) 6.7 % (13-45); MEAN CORPUSCULAR HEMOGLOBIN 30.2 pg (27.0-33.4); MEAN CORPUSCULAR HGB CONC 34.1 g/dL (32.0-36.0); MEAN CORPUSCULAR VOLUME 89 fl (80-97); MONOCYTES % (AUTO) 9.6 % (3-13); PLATELET COUNT 231 10^3/uL (150-450); RED BLOOD COUNT 3.62 10^6/uL (4.35-5.55); RED CELL DISTRIBUTION WIDTH 18.6 % (11.5-14.0); SEGMENTED NEUTROPHILS % (AUTO) 82.7 % (42-78); TOTAL CELLS COUNTED % (AUTO) 100 %
[2019-02-21 07:00] LABS: ALBUMIN 3.1 g/dL (3.5-5.0); ALKALINE PHOSPHATASE 121 U/L (38-126); ANION GAP 9 (5-19); ASPARTATE AMINO TRANSFERASE 34 U/L (17-59); BILIRUBIN,DIRECT 0.2 mg/dL (0.0-0.4); BILIRUBIN,TOTAL 0.7 mg/dL (0.2-1.3); BLOOD UREA NITROGEN 15 mg/dL (7-20); CARBON DIOXIDE 24 mmol/L (22-30); CHLORIDE 107 mmol/L (98-107); GLUCOSE 127 mg/dL (75-110); POTASSIUM 3.7 mmol/L (3.6-5.0); TOTAL PROTEIN 5.8 g/dL (6.3-8.2)
[2019-02-21] MEDS ORDERED: ASPIRIN 81 MG TABLET, CHEWABLE PO SCH (10:00)
[2019-02-21] MEDS ORDERED: DOCUSATE SODIUM 100 MG CAPSULE PO SCH (10:00)
[2019-02-21] MEDS: FLUTICASONE NASAL SPRAY 50 MCG/SPRY 120 SPRAY/16 GM NASL SCH (10:08)
[2019-02-21 13:26] VITALS: BP 149/76
--- NOTE | 2019-02-21 15:37 | PDOC DISCHARGE SUMMARY ---
Impression - Admit/DC Date/PCP Admission Date/Primary Care Provider: 02/20/19 20:59 MARIKA RIGGS MD Discharge Date: 02/21/19 - Discharge Diagnosis (1) Leukocytosis Is this a current diagnosis for this admission?: Yes (2) Pancreatic cancer Is this a current diagnosis for this admission?: Yes - Additional Information Resuscitation Status: Full Code Discharge Diet: Diabetic Discharge Activity: Activity As Tolerated Referrals: JSOE D GUY PA-C [ALLIED HEALTH PROFESSIONAL] - Follow up as needed Prescriptions: Levofloxacin [Levaquin 500 mg Tablet] 500 mg PO DAILY #4 tablet Home Medications: Atorvastatin Calcium [Lipitor 40 mg Tablet] 40 mg PO QHS 12/01/13 Aspirin [Ecotrin 81 mg EC Tablet] 81 mg PO DAILY 01/06/18 Levofloxacin [Levaquin 500 mg Tablet] 500 mg PO DAILY #4 tablet 02/21/19 Metformin HCl [Metformin HCl ER] 500 mg PO DAILY 02/21/19 Multivitamin [Tab-A-Tabitha (Multiple Vitamin) Tablet] 1 tab PO DAILY 02/21/19 Amberson-3/Dha/Epa/Fish Oil [Fish Oil 1,000 mg Softgel] 1,000 mg PO DAILY 02/21/19 Omeprazole 20 mg PO DAILYP PRN 02/21/19 History of Present Illiness History of Present Illness: AYAN DE LA FUENTE is a 73 year old male with a past medical history of diabetes, hypertension and pancreatic cancer status post stent and chemotherapy with scheduled Whipple procedure at [facility] on March 05. He presents with acute on chronic rhinorrhea, postnasal drip developing shortness of breath and a productive cough prompting evaluation emergency room where he is found to have leukocytosis but unremarkable LFTs, CTs of the chest and abdomen negative for acute process. Given his chemotherapy and immunocompromise state he is referred to the hospitalist for admission. Patient denies recent antibiotic use. He is otherwise felt well Hospital Course Hospital Course: The patient told me that he had a temperature of 100.3 Fahrenheit at home and would not have even come into the hospital had his not made him. He has no somatic complaints. CT of the chest abdomen and pelvis was negative for any sort of acute infectious etiology. Urinalysis was unremarkable. He was put empirically on antibiotics for a white blood cell count of 16 but there was no evidence of any source and the patient was not septic. He was eating and drinking without difficulty whatsoever. He wanted to go home and seeing as there was no obvious source of infection other than perhaps some upper respiratory symptoms that were not serious I decided to leave him going home. He has follow-up at [facility] in 2 days. I sent him home with a few days of Levaquin just in case he has a bronchitis. His labs and examination were reassuring and he was discharged in good condition. Physical Exam Vital Signs: Temp Pulse Resp BP Pulse Ox 98.2 F 108 H 18 149/76 H 95 02/21/19 13:37 02/21/19 13:37 02/21/19 13:37 02/21/19 13:37 02/21/19 13:37 Intake & Output 02/20/19 02/21/19 02/22/19 06:59 06:59 06:59 Intake Total 4300 3030 Balance 4300 3030 Weight 99.79 kg General appearance: PRESENT: no acute distress, cooperative, obese Respiratory exam: PRESENT: clear to auscultation oscar, symmetrical, unlabored. ABSENT: accessory muscle use, chest wall tenderness, crackles, prolonged expiratory phas, rhonchi, tachypnea, wheezes Cardiovascular exam: PRESENT: RRR, +S1, +S2 Pulses: PRESENT: normal carotid pulses Vascular exam: PRESENT: normal capillary refill GI/Abdominal exam: PRESENT: normal bowel sounds, soft. ABSENT: distended, guarding, rebound, tenderness Extremities exam: ABSENT: clubbing, pedal edema Musculoskeletal exam: PRESENT: normal inspection. ABSENT: deformity Neurological exam: PRESENT: alert, awake, oriented to person, oriented to place, oriented to time, oriented to situation Psychiatric exam: PRESENT: appropriate affect, normal mood Skin exam: PRESENT: dry, warm Results Laboratory Results: WBC 11.0 10^3/uL (4.0-10.5) H 02/21/19 05:40 RBC 3.62 10^6/uL (4.35-5.55) L 02/21/19 05:40 Hgb 10.9 g/dL (13.5-17.0) L 02/21/19 05:40 Hct 32.1 % (37.9-51.0) L 02/21/19 05:40 MCV 89 fl (80-97) 02/21/19 05:40 MCH 30.2 pg (27.0-33.4) 02/21/19 05:40 MCHC 34.1 g/dL (32.0-36.0) 02/21/19 05:40 RDW 18.6 % (11.5-14.0) H 02/21/19 05:40 Plt Count 231 10^3/uL (150-450) 02/21/19 05:40 Lymph % (Auto) 6.7 % (13-45) L 02/21/19 05:40 Collings[place] % (Auto) 9.6 % (3-13) 02/21/19 05:40 Eos % (Auto) 0.7 % (0-6) 02/21/19 05:40 Baso % (Auto) 0.3 % (0-2) 02/21/19 05:40 Absolute Neuts (auto) 9.1 10^3/uL (1.7-8.2) H 02/21/19 05:40 Absolute Lymphs (auto) 0.7 10^3/uL (0.5-4.7) 02/21/19 05:40 Absolute Monos (auto) 1.1 10^3/uL (0.1-1.4) 02/21/19 05:40 Absolute Eos (auto) 0.1 10^3/uL (0.0-0.6) 02/21/19 05:40 Absolute Basos (auto) 0.0 10^3/uL (0.0-0.2) 02/21/19 05:40 Total Counted 100 02/20/19 12:02 Seg Neutrophils % 82.7 % (42-78) H 02/21/19 05:40 Seg Neuts % (Manual) 85 % (42-78) H 02/20/19 12:02 Lymphocytes % (Manual) 8 % (13-45) L 02/20/19 12:02 Monocytes % (Manual) 6 % (3-13) 02/20/19 12:02 Eosinophils % (Manual) 0 % (0-6) 02/20/19 12:02 Basophils % (Manual) 1 % (0-2) 02/20/19 12:02 Abs Neuts (Manual) 13.9 10^3/uL (1.7-8.2) H 02/20/19 12:02 Abs Lymphs (Manual) 1.3 10^3/uL (0.5-4.7) 02/20/19 12:02 Abs Monocytes (Manual) 1.0 10^3/uL (0.1-1.4) 02/20/19 12:02 Absolute Eos (Manual) 0.0 10^3/uL (0.0-0.6) 02/20/19 12:02 Abs Basophils (Manual) 0.2 10^3/uL (0.0-0.2) 02/20/19 12:02 Platelet Comment ADEQUATE 02/20/19 12:02 Anisocytosis 2+ 02/20/19 12:02 RBC Morph Comment NORMO-CYTIC/CHROMIC 02/20/19 12:02 Sodium 139.5 mmol/L (137-145) 02/21/19 05:40 Potassium 3.7 mmol/L (3.6-5.0) 02/21/19 05:40 Chloride 107 mmol/L (98-107) 02/21/19 05:40 Carbon Dioxide 24 mmol/L (22-30) 02/21/19 05:40 Anion Gap 9 (5-19) 02/21/19 05:40 BUN 15 mg/dL (7-20) 02/21/19 05:40 Creatinine 0.82 mg/dL (0.52-1.25) 02/21/19 05:40 Est GFR ( Amer) > 60 (>60) 02/21/19 05:40 Est GFR (MDRD) Non-Af > 60 (>60) 02/21/19 05:40 Glucose 127 mg/dL (75-110) H 02/21/19 05:40 POC Glucose 150 mg/dL (70-110) H 02/21/19 06:10 Lactic Acid (Sepsis) 1.2 mmol/L (0.7-2.1) 02/20/19 16:40 Calcium 8.0 mg/dL (8.4-10.2) L 02/21/19 05:40 Total Bilirubin 0.7 mg/dL (0.2-1.3) 02/21/19 05:40 Direct Bilirubin 0.2 mg/dL (0.0-0.4) 02/21/19 05:40 Neonat Total Bilirubin Not Reportable 02/21/19 05:40 Neonat Direct Bilirubin Not Reportable 02/21/19 05:40 Neonat Indirect Bili Not Reportable 02/21/19 05:40 AST 34 U/L (17-59) 02/21/19 05:40 ALT 38 U/L (<50) 02/21/19 05:40 Alkaline Phosphatase 121 U/L (38-126) 02/21/19 05:40 Total Protein 5.8 g/dL (6.3-8.2) L 02/21/19 05:40 Albumin 3.1 g/dL (3.5-5.0) L 02/21/19 05:40 Lipase 24.8 U/L (23-300) 02/21/19 05:40 Urine Color YELLOW 02/20/19 12:02 Urine Appearance CLEAR 02/20/19 12:02 Urine pH 6.0 (5.0-9.0) 02/20/19 12:02 Ur Specific Carmichael 1.017 02/20/19 12:02 Urine Protein NEGATIVE mg/dL (NEGATIVE) 02/20/19 12:02 Urine Glucose (UA) NEGATIVE mg/dL (NEGATIVE) 02/20/19 12:02 Urine Ketones NEGATIVE mg/dL (NEGATIVE) 02/20/19 12:02 Urine Blood NEGATIVE (NEGATIVE) 02/20/19 12:02 Urine Nitrite NEGATIVE (NEGATIVE) 02/20/19 12:02 Urine Bilirubin NEGATIVE (NEGATIVE) 02/20/19 12:02 Urine Urobilinogen NEGATIVE mg/dL (<2.0) 02/20/19 12:02 Ur Leukocyte Esterase NEGATIVE (NEGATIVE) 02/20/19 12:02 Urine WBC (Auto) 1 /HPF 02/20/19 12:02 Urine RBC (Auto) 0 /HPF 02/20/19 12:02 Urine Mucus (Auto) RARE /LPF 02/20/19 12:02 Urine Ascorbic Acid NEGATIVE (NEGATIVE) 02/20/19 12:02 Impressions: Chest X-Ray 02/20/19 16:15 IMPRESSION: Cardiomegaly with no monica pulmonary edema. Chest CT 02/20/19 18:38 IMPRESSION: 1. No acute findings. 2. Stable stent in the pancreatic head with mild pneumobilia. 3. Bilateral nonobstructing renal stones. Abdomen/Pelvis CT 02/20/19 18:39 IMPRESSION: 1. No acute findings. 2. Stable stent in the pancreatic head with mild pneumobilia. 3. Bilateral nonobstructing renal stones. Plan Time Spent: Greater than 30 Minutes Stroke Is this a Stroke Patient?: No Acute Heart Failure - Is this a Heart Failure Patient?: No
== END 2019-02-21 13:50 | disposition home or self-care (01) | DRG 437 ==
LOC: ER 11:17 → EH 20:59 → 4S 22:45
PROVIDERS: ADMIT Internal Medicine; ATTEND Internal Medicine
DX: C25.9 Malignant neoplasm of pancreas, unspecified (principal); D72.829 Elevated white blood cell count, unspecified; R50.9 Fever, unspecified; J20.9 Acute bronchitis, unspecified; R05 Cough; E11.9 Type 2 diabetes mellitus without complications; I10 Essential (primary) hypertension; E78.5 Hyperlipidemia, unspecified; M19.90 Unspecified osteoarthritis, unspecified site; Z92.25 Personal history of immunosuppression therapy; Z79.899 Other long term (current) drug therapy
CPT/HCPCS: 36415; 36591; 71046; 71260; 74177; 80053; 81001; 82962; 83605; 83690; 85025; 87040; 93005; 93010; 94640; 94799; 96365; 96367; 99285; J1642; J1644; J2543; J3370; J7030; J7050; J7060; J7620

== ENCOUNTER 2019-05-08 15:46 | Emergency (ER) | payer MEDICARE, BC ==
[2019-05-08] MEDS ORDERED: NORMAL SALINE 1000 ML 1,000 ML IV ONE (16:44)
[2019-05-08] MEDS ORDERED: ONDANSETRON HCL INJ/PF 4 MG/2 ML SDV IV ONE ×2 (16:44→18:00)
[2019-05-08] MEDS ORDERED: MORPHINE SULFATE 10 MG/ML INJ IV ONE ×2 (16:44→18:00)
[2019-05-08 17:22] LABS: ABSOLUTE EOSINOPHILS # (AUTO) 0.2 10^3/uL (0.0-0.6); ABSOLUTE MONOCYTES (AUTO) 0.7 10^3/uL (0.1-1.4); ABSOLUTE NEUT (AUTO) 8.1 10^3/uL (1.7-8.2); BASOPHILS % (AUTO) 0.3 % (0-2); EOSINOPHILS % (AUTO) 1.5 % (0-6); HEMATOCRIT 36.2 % (37.9-51.0); HEMOGLOBIN 12.1 g/dL (13.5-17.0); LYMPHOCYTES % (AUTO) 9.7 % (13-45); MEAN CORPUSCULAR HEMOGLOBIN 29.1 pg (27.0-33.4); MEAN CORPUSCULAR HGB CONC 33.4 g/dL (32.0-36.0); MEAN CORPUSCULAR VOLUME 87 fl (80-97); MONOCYTES % (AUTO) 6.7 % (3-13); PLATELET COUNT 248 10^3/uL (150-450); RED BLOOD COUNT 4.15 10^6/uL (4.35-5.55); RED CELL DISTRIBUTION WIDTH 19.5 % (11.5-14.0); SEGMENTED NEUTROPHILS % (AUTO) 81.8 % (42-78); TOTAL CELLS COUNTED % (AUTO) 100 %; WHITE BLOOD COUNT 9.9 10^3/uL (4.0-10.5)
[2019-05-08 17:38] LABS: ALKALINE PHOSPHATASE 328 U/L (38-126); ANION GAP 13 (5-19); ASPARTATE AMINO TRANSFERASE 48 U/L (17-59); BILIRUBIN,DIRECT 0.4 mg/dL (0.0-0.4); BILIRUBIN,TOTAL 0.4 mg/dL (0.2-1.3); BLOOD UREA NITROGEN 17 mg/dL (7-20); CALCIUM 9.4 mg/dL (8.4-10.2); CARBON DIOXIDE 24 mmol/L (22-30); CHLORIDE 103 mmol/L (98-107); GLUCOSE 227 mg/dL (75-110); POTASSIUM 4.2 mmol/L (3.6-5.0)
[2019-05-08 17:39] LABS: INTERNATIONAL RATION (INR) 0.94; PROTHROMBIN TIME 12.6 SEC (11.4-15.4)
--- NOTE | 2019-05-08 17:56 | ER Document Report ---
ED GI/ - General Chief Complaint: Abdominal Pain Stated Complaint: ABDOMINAL PAIN/NAUSEA Time Seen by Provider: 05/08/19 16:24 Primary Care Provider: MARIKA RIGGS MD [Primary Care Provider] - Follow up in 3-5 days TRAVEL OUTSIDE OF THE [place] IN LAST 30 DAYS: No - HPI Notes: 05/08/19 17:53 74-year-old male to the emergency department with complaints of right lower quadrant abdominal pain that began this morning with associated nausea and vomiting. States he is tried to eat breakfast and then something else and it just came right back up. He states that he is only had a very small bowel movement today. He states he has had less than a cup of stool. He states he does have difficulty with constipation but his last bowel movement was yesterday. Of note this patient has pancreatic cancer and is under treatment currently. He did have a Whipple procedure in February at [facility] via Dr. Mason. He has never had a small bowel obstruction before. He denies any fevers or chills. He still has his appendix. He is currently in chemo with Dr. Casas. - Related Data Allergies/Adverse Reactions: No Known Allergies Allergy (Verified 01/06/18 06:05) Home Medications: Metformin, Metoprolol, Creon, Basaglar, Atorvastatin, Aspirin, Multivitamin Past Medical History - General Information source: Patient, Relative - Social History Smoking Status: Former Smoker Frequency of alcohol use: None Drug Abuse: None Lives with: Spouse/Significant other Family History: COPD Patient has suicidal ideation: No Patient has homicidal ideation: No - Past Medical History Cardiac Medical History: Reports: Hx Hypercholesterolemia, Hx Hypertension - ON MEDS Denies: Hx Atrial Fibrillation, Hx Congestive Heart Failure, Hx Coronary Artery Disease, Hx Heart Attack, Hx Peripheral Vascular Disease, Hx Heart Murmur Pulmonary Medical History: Reports: Hx Pneumonia - 30 YEARS AGO Denies: Hx Asthma, Hx Bronchitis, Hx COPD, Hx Tuberculosis Neurological Medical History: Denies: Hx Cerebrovascular Accident, Hx Seizures Endocrine Medical History: Renal/ Medical History: Malignancy Medical History: GI Medical History: Denies: Hx Hepatitis, Hx Hiatal Hernia, Hx Ulcer Musculoskeletal Medical History: Reports Hx Arthritis - MILD Psychiatric Medical History: Traumatic Medical History: Infectious Medical History: Denies: Hx Hepatitis Past Surgical History: Reports: Hx Herniorrhaphy - Lt inguinal hernia, Hx Orthopedic Surgery - left shoulder, left hip replacement 06/04/11. Denies: Hx Appendectomy, Hx Bowel Surgery, Hx Cholecystectomy, Hx Coronary Artery Bypass Graft, Hx Gastric Bypass Surgery, Hx Open Heart Surgery, Hx Pacemaker, Hx Tonsillectomy - Immunizations Hx Diphtheria, Pertussis, Tetanus Vaccination: Yes Hx Pneumococcal Vaccination: 03/18/14 Review of Systems - Review of Systems Constitutional: denies: Chills, Fever EENT: No symptoms reported Cardiovascular: denies: Chest pain, Palpitations, Dyspnea, Syncope, Dizziness Respiratory: denies: Cough, Short of breath Gastrointestinal: Abdominal pain, Nausea, Vomiting. denies: Diarrhea Genitourinary: No symptoms reported Musculoskeletal: No symptoms reported Skin: No symptoms reported Hematologic/Lymphatic: No symptoms reported Neurological/Psychological: No symptoms reported -: Yes All other systems reviewed and negative Physical Exam - Vital signs Vitals: Temp Pulse Resp BP Pulse Ox 97.4 F 73 16 147/78 H 100 05/08/19 16:05 05/08/19 16:05 05/08/19 16:05 05/08/19 16:05 05/08/19 16:05 Interpretation: Normal - General General appearance: Appears well, Alert - HEENT Head: Normocephalic, Atraumatic Eyes: Normal Pupils: PERRL - Respiratory Respiratory status: No respiratory distress Chest status: Nontender Breath sounds: Normal Chest palpation: Normal - Cardiovascular Rhythm: Regular Heart sounds: Normal auscultation Murmur: No - Abdominal Inspection: Obese, Other - Noted healed midline incision from [place]. Distension: No distension. No: Tympanitic Bowel sounds: Normal Tenderness: Tender - There is tenderness to palpation in the right lower quadrant. Patient does not guard or rebound.. No: Davis's sign, Guarding, Rebound Organomegaly: No organomegaly - Back Back: Normal, Nontender. No: CVA tenderness - Neurological Neuro grossly intact: Yes Cognition: Normal Orientation: AAOx4 Alex Coma Scale Eye Opening: Spontaneous Lismore Coma Scale Verbal: Oriented Lismore Coma Scale Motor: Obeys Commands Lismore Coma Scale Total: 15 Speech: Normal Cranial nerves: Normal. No: Facial palsy, Forehead sparing, Gaze palsy Cerebellar coordination: Normal Motor strength normal: LUE, RUE, LLE, RLE Additional motor exam normals: Equal meteorological observer. No: Pronator drift Sensory: Normal - Psychological Associated symptoms: Normal affect, Normal mood - Skin Skin Temperature: Warm Skin Moisture: Dry Skin Color: Normal Course - Re-evaluation Re-evalutation: Impression: Right-sided ureteral kidney stones. Patient has had better pain control here. He has not been vomiting. He is requesting p.o. Challenged with rosa crackers and fluids and he did very well. We discussed the CT reading and he does have a history of kidney stones but he cannot remember what they felt like the last time. The last one was about 4 years ago. Will send home with pain medicine, antiemetics, Flomax. Have encouraged the patient to return if he has intractable vomiting, fevers, intractable pain. He agrees with the plan. - Vital Signs Vital signs: Temp Pulse Resp BP Pulse Ox 98.0 F 78 17 122/77 99 05/08/19 21:55 05/08/19 21:55 05/08/19 21:55 05/08/19 21:55 05/08/19 21:55 - Laboratory Result Diagrams: 05/08/19 16:50 05/08/19 16:50 Laboratory results interpreted by me: 05/08/19 05/08/19 16:50 16:50 RBC 4.15 L Hgb 12.1 L Hct 36.2 L RDW 19.5 H Lymph % (Auto) 9.7 L Seg Neutrophils % 81.8 H Creatinine 1.30 H Est GFR (MDRD) Non-Af 54 L Glucose 227 H ALT 81 H Alkaline Phosphatase 328 H Lipase < 10.0 L - Diagnostic Test Radiology reviewed: Image reviewed, Reports reviewed Discharge - Discharge Clinical Impression: Kidney stone on right side, Right lower quadrant abdominal pain Nausea & vomiting Qualifiers: Vomiting type: unspecified Vomiting Intractability: non-intractable Qualified Code(s): R11.2 - Nausea with vomiting, unspecified Condition: Stable Disposition: HOME, SELF-CARE Instructions: Abdominal Pain ([facility]), Kidney Stone ([facility]), Vomiting ([facility]) Additional Instructions: Push fluids. REturn if worsening pain, fevers, intractable vomiting, or any other concerning symptoms. Follow up with primary care on Saturday. Prescriptions: Ondansetron [Zofran Odt 4 mg Tablet] 1 - 2 tab PO Q4HP PRN #10 tab.rapdis PRN Reason: Tamsulosin HCl [Flomax] 0.4 mg PO DAILY #10 cap.er.24h Oxycodone HCl/Acetaminophen [Percocet 5-325 mg Tablet] 1 - 2 tab PO Q4H PRN #15 tablet PRN Reason: Referrals: MARIKA RIGGS MD [Primary Care Provider] - Follow up in 3-5 days
--- NOTE | 2019-05-08 21:00 | RADIOLOGY REPORT (SQ) ---
EXAM DESCRIPTION: CT abdomen and pelvis with contrast CLINICAL HISTORY: 74 years Male, Right lower quadrant abdominal pain, recent whipple COMPARISON: CT abdomen and pelvis 02/20/2019 TECHNIQUE: Axial images of the abdomen and pelvis were performed utilizing intravenous contrast, with sagittal and coronal reformatted images. This exam was performed according to our departmental dose-optimization program which includes use of Automated Exposure Control, adjustment of the mA and/or kV according to patient size and/or use of iterative reconstruction technique. FINDINGS: There is a 3.6 x 3.4 x 3.2 mm stone, in the proximal right ureter, with mild hydronephrosis. There are streaky changes in the right perirenal and right periureteral fat. There is a 3.9 x 3.3 x 3 mm stone within the urinary bladder. There are stones in the kidneys bilaterally. There is a 2.5 cm low-density lesion in the left lobe of the liver. This lesion was not definitely seen on the prior CT scan. There are atherosclerotic changes involving the abdominal aorta, but there is no aneurysm. The appendix appears normal. The patient has had a Whipple procedure. The spleen and adrenal glands are unremarkable. 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 IMPRESSION: Proximal right ureteral stone. 2.5 cm lesion in the left lobe of the liver. A metastatic lesion must be considered. Hepatic ultrasound would be helpful to determine if this is a cystic or solid lesion. Other findings as described.
[2019-05-08 22:06] VITALS: BP 122/77
== END 2019-05-08 22:07 | disposition home or self-care (01) ==
LOC: ER 15:46
DX: N13.2 Hydronephrosis with renal and ureteral calculous obstruction (principal); C25.9 Malignant neoplasm of pancreas, unspecified; R10.31 Right lower quadrant pain; R10.813 Right lower quadrant abdominal tenderness; R11.2 Nausea with vomiting, unspecified; E78.00 Pure hypercholesterolemia, unspecified; I10 Essential (primary) hypertension; Z79.899 Other long term (current) drug therapy; Z79.82 Long term (current) use of aspirin; Z79.4 Long term (current) use of insulin; Z87.891 Personal history of nicotine dependence
CPT/HCPCS: 36415; 83690; 85025; 85610; 85730; 80053; 74177; J2270; J2405; J7030; 96361; 96374; 96375; 96376; 99284

== ENCOUNTER 2019-05-11 11:36 | Emergency (ER) | payer MEDICARE, BC ==
[2019-05-11] MEDS ORDERED: NORMAL SALINE 1000 ML 1,000 ML IV ONE (12:27)
--- NOTE | 2019-05-11 12:29 | ER Document Report ---
ED Medical Screen (RME) - General Chief Complaint: Flank Pain Stated Complaint: FLANK PAIN Time Seen by Provider: 05/11/19 12:22 Primary Care Provider: MARIKA RIGGS MD [Primary Care Provider] - Follow up as needed Notes: Patient is a 74-year-old male who presents to the emergency department with a chief complaint of right flank pain. He was diagnosed with a kidney stone 3 days ago. He states that he feels stones have not passed. States that his pain is tolerable, but it is still there. He is taking Percocet. His last dose was morning. Exam: Right CVA tenderness. I have greeted and performed a rapid initial assessment of this patient. A comprehensive ED assessment and evaluation of the patient, analysis of test results and completion of medical decision making process will be conducted by an additional ED providers. TRAVEL OUTSIDE OF THE [place] IN LAST 30 DAYS: No - Related Data Allergies/Adverse Reactions: No Known Allergies Allergy (Verified 01/06/18 06:05) Home Medications: Tamsulosin, Atorvastatin, Percocet, Creon Past Medical History - Past Medical History Cardiac Medical History: Reports: Hx Hypercholesterolemia, Hx Hypertension - ON MEDS Denies: Hx Atrial Fibrillation, Hx Congestive Heart Failure, Hx Coronary Artery Disease, Hx Heart Attack, Hx Peripheral Vascular Disease, Hx Heart Murmur Pulmonary Medical History: Reports: Hx Pneumonia - 30 YEARS AGO Denies: Hx Asthma, Hx Bronchitis, Hx COPD, Hx Tuberculosis Neurological Medical History: Denies: Hx Cerebrovascular Accident, Hx Seizures Endocrine Medical History: Renal/ Medical History: Malignancy Medical History: GI Medical History: Denies: Hx Hepatitis, Hx Hiatal Hernia, Hx Ulcer Musculoskeltal Medical History: Reports Hx Arthritis - MILD Psychiatric Medical History: Traumatic Medical History: Infectious Medical History: Denies: Hx Hepatitis Past Surgical History: Reports: Hx Herniorrhaphy - Lt inguinal hernia, Hx Orthopedic Surgery - left shoulder, left hip replacement 06/04/11. Denies: Hx Appendectomy, Hx Bowel Surgery, Hx Cholecystectomy, Hx Coronary Artery Bypass Graft, Hx Gastric Bypass Surgery, Hx Open Heart Surgery, Hx Pacemaker, Hx Tonsillectomy - Immunizations Hx Diphtheria, Pertussis, Tetanus Vaccination: Yes Physical Exam - Vital signs Vitals: Temp Pulse Resp BP Pulse Ox 97.5 F 85 18 131/74 H 97 05/11/19 12:20 05/11/19 12:20 05/11/19 12:20 05/11/19 12:20 05/11/19 12:20 Course - Vital Signs Vital signs: Temp Pulse Resp BP Pulse Ox 97.5 F 85 18 131/74 H 97 05/11/19 12:20 05/11/19 12:20 05/11/19 12:20 05/11/19 12:20 05/11/19 12:20 Doctor's Discharge - Discharge Referrals: MARIKA RIGGS MD [Primary Care Provider] - Follow up as needed
[2019-05-11 12:46] LABS: ABSOLUTE EOSINOPHILS # (AUTO) 0.2 10^3/uL (0.0-0.6); ABSOLUTE LYMPHOCYTES (AUTO) 0.7 10^3/uL (0.5-4.7); ABSOLUTE MONOCYTES (AUTO) 0.7 10^3/uL (0.1-1.4); ABSOLUTE NEUT (AUTO) 6.4 10^3/uL (1.7-8.2); BASOPHILS % (AUTO) 0.3 % (0-2); EOSINOPHILS % (AUTO) 2.9 % (0-6); HEMATOCRIT 33.6 % (37.9-51.0); LYMPHOCYTES % (AUTO) 8.5 % (13-45); MEAN CORPUSCULAR HEMOGLOBIN 28.3 pg (27.0-33.4); MEAN CORPUSCULAR HGB CONC 32.7 g/dL (32.0-36.0); MEAN CORPUSCULAR VOLUME 87 fl (80-97); MONOCYTES % (AUTO) 8.7 % (3-13); PLATELET COUNT 312 10^3/uL (150-450); RED BLOOD COUNT 3.88 10^6/uL (4.35-5.55); RED CELL DISTRIBUTION WIDTH 18.9 % (11.5-14.0); SEGMENTED NEUTROPHILS % (AUTO) 79.6 % (42-78); TOTAL CELLS COUNTED % (AUTO) 100 %; WHITE BLOOD COUNT 8.1 10^3/uL (4.0-10.5)
[2019-05-11 13:03] LABS: APPEARANCE,URINE CLEAR; BILIRUBIN,URINE NEGATIVE (NEGATIVE); COLOR,URINE STRAW; GLUCOSE, URINE NEGATIVE (NEGATIVE); KETONES,URINE NEGATIVE (NEGATIVE); LEUKOCYTE ESTERASE,URINE NEGATIVE (NEGATIVE); NITRITE,URINE NEGATIVE (NEGATIVE); PROTEIN,URINE NEGATIVE (NEGATIVE); URINE SPECIFIC GRAVITY 1.004; UROBILINOGEN,URINE NEGATIVE mg/dL (<2.0)
[2019-05-11 13:07] LABS: ALBUMIN 3.5 g/dL (3.5-5.0); ALKALINE PHOSPHATASE 283 U/L (38-126); ANION GAP 10 (5-19); ASPARTATE AMINO TRANSFERASE 27 U/L (17-59); BILIRUBIN,DIRECT 0.3 mg/dL (0.0-0.4); BILIRUBIN,TOTAL 0.5 mg/dL (0.2-1.3); BLOOD UREA NITROGEN 17 mg/dL (7-20); CALCIUM 8.8 mg/dL (8.4-10.2); CARBON DIOXIDE 28 mmol/L (22-30); CHLORIDE 100 mmol/L (98-107); GLUCOSE 167 mg/dL (75-110); POTASSIUM 4.8 mmol/L (3.6-5.0); TOTAL PROTEIN 6.4 g/dL (6.3-8.2)
--- NOTE | 2019-05-11 14:27 | RADIOLOGY REPORT (SQ) ---
EXAM DESCRIPTION: CT ABD/PELVIS NO ORAL OR IV COMPLETED DATE/TIME: 05/11/2019 1:49 pm REASON FOR STUDY: right flank pain; eval stones COMPARISON: CT of the abdomen pelvis with contrast from 05/08/2019. TECHNIQUE: CT scan of the abdomen and pelvis performed without intravenous or oral contrast. Images reviewed with lung, soft tissue, and bone windows. Reconstructed coronal and sagittal MPR images revi ewed. All images stored on PACS. All CT scanners at this facility use dose modulation, iterative reconstruction, and/or weight based d osing when appropriate to reduce radiation dose to as low as reasonably achievable (ALARA). [facility]: Dose Right [facility]: CareDose [facility]: Dose Right [facility]: Teradose 4D [facility]: [employer] RADIATION DOSE: CT Rad equipment meets quality standard of care and radiation dose reduction techniq ues were employed. CTDIvol: 11.2 mGy. DLP: 632 mGy-cm. LIMITATIONS: None. FINDINGS: LOWER CHEST: Unchanged calcified pleural plaques. NON-CONTRASTED LIVER, SPLEEN, ADRENALS: Evaluation is limited due to the absence of intravenous contr ast. The ovoid hypodense lesion within segment 2 of the liver is unchanged. The spleen is normal in size. There is no abnormality of the adrenal glands. PANCREAS: Status post Whipple. GALLBLADDER: Status post cholecystectomy. There is a plastic biliary catheter in place that extends from the right hepatic duct into the bowel. RIGHT KIDNEY AND URETER: Evaluation is limited due to the absence of intravenous contrast. The 1.6 x 1.3 cm exophytic lesion that arises from the posterior cortex of the kidney is stable. There are sev eral caliceal calculi that measure up to 5 mm. The ureteral calculus described on the CT from 020 has migrated and at the moment is located at the ureterovesicular junction. The calculus is asso ciated with moderate hydronephrosis/ hydroureter and asymmetric stranding of the periureteral fat. LEFT KIDNEY AND URETER: Evaluation is limited due to the absence of intravenous contrast. There are several stable caliceal calculi that measure up to 4 mm in diameter. There is no hydronephrosis, hyd roureter or ureterolithiasis. AORTA AND RETROPERITONEUM: No aneurysm of the abdominal aorta. No retroperitoneal adenopathy, hemorr donato or mass. BOWEL AND PERITONEAL CAVITY: Status post Whipple. There is no bowel obstruction, bowel wall thickeni ng or pericolonic/ perienteric inflammation. There is no mesenteric adenopathy, free intraperitoneal fluid or mesenteric/ omental inflammation. APPENDIX: Unable to identify the appendix. PELVIS, BLADDER, AND ABDOMINAL WALL:Evaluation of the pelvis is limited due to our the artifact from the left hip prosthesis. The urinary bladder is distended and normal in appearance. BONES: No acute findings. OTHER: No other finding. IMPRESSION: 1. The ureteral calculus described on the CT from 05/08/2019 has migrated [facility] is located at the ureterovesicular junction. The calculus is associated with moderate hydronephro sis/ hydroureter and asymmetric stranding of the periureteral fat. 2. Status post Whipple. 3. Other unchanged findings as detailed above. COMMENT: Quality ID # [id number]: Final reports with documentation of one or more dose reduction techniques (e.g., Automated exposure control, adjustment of the mA and/or kV according to patient size, use of iterative reconstruction technique) TECHNICAL DOCUMENTATION: JOB ID: [id number] 2010 [employer]- All Rights Reserved Reading location - IP/workstation name: [email or web address]
[2019-05-11] MEDS ORDERED: KETOROLAC TROMETHAMINE INJ/PF 30 MG/1 ML SDV IV ONE (16:11)
--- NOTE | 2019-05-11 16:17 | ER Document Report ---
ED GI/ - General Chief Complaint: Flank Pain Stated Complaint: FLANK PAIN Time Seen by Provider: 05/11/19 12:22 Primary Care Provider: MARIKA RIGGS MD [Primary Care Provider] - Follow up as needed Notes: 74-year-old man presents to the emergency department with a history of a kidney stone which was diagnosed on Saturday. He has a 3 mm stone in the right ureter ureter. He came in today because he is continued to have pain and is concerned that he has not passed a stone. He denies fever, nausea vomiting, or associated urinary difficulties. TRAVEL OUTSIDE OF THE [place] IN LAST 30 DAYS: No - Related Data Allergies/Adverse Reactions: No Known Allergies Allergy (Verified 01/06/18 06:05) Home Medications: Tamsulosin, Atorvastatin, Percocet, Creon Past Medical History - Social History Smoking Status: Unknown if Ever Smoked Family History: COPD Patient has suicidal ideation: No Patient has homicidal ideation: No - Past Medical History Cardiac Medical History: Reports: Hx Hypercholesterolemia, Hx Hypertension - ON MEDS Denies: Hx Atrial Fibrillation, Hx Congestive Heart Failure, Hx Coronary Artery Disease, Hx Heart Attack, Hx Peripheral Vascular Disease, Hx Heart Murmur Pulmonary Medical History: Reports: Hx Pneumonia - 30 YEARS AGO Denies: Hx Asthma, Hx Bronchitis, Hx COPD, Hx Tuberculosis Neurological Medical History: Denies: Hx Cerebrovascular Accident, Hx Seizures Endocrine Medical History: Renal/ Medical History: Malignancy Medical History: GI Medical History: Denies: Hx Hepatitis, Hx Hiatal Hernia, Hx Ulcer Musculoskeletal Medical History: Reports Hx Arthritis - MILD Psychiatric Medical History: Traumatic Medical History: Infectious Medical History: Denies: Hx Hepatitis Past Surgical History: Reports: Hx Herniorrhaphy - Lt inguinal hernia, Hx Ortho pedic Surgery - left shoulder, left hip replacement 06/04/11. Denies: Hx Appendectomy, Hx Bowel Surgery, Hx Cholecystectomy, Hx Coronary Artery Bypass Graft, Hx Gastric Bypass Surgery, Hx Open Heart Surgery, Hx Pacemaker, Hx Tonsillectomy - Immunizations Hx Diphtheria, Pertussis, Tetanus Vaccination: Yes Hx Pneumococcal Vaccination: 03/18/14 Review of Systems - Review of Systems Notes: Constitutional: Negative for fever. HENT: Negative for sore throat. Eyes: Negative for visual changes. Cardiovascular: Negative for chest pain. Respiratory: Negative for shortness of breath. Gastrointestinal + right anterior abdominal pain, no vomiting or diarrhea. Genitourinary: + Right flank pain Musculoskeletal: Negative for back pain. Skin: Negative for rash. Neurological: Negative for headaches, weakness or numbness. 10 point ROS negative except as marked above and in HPI. Physical Exam - Vital signs Vitals: Temp Pulse Resp BP Pulse Ox 97.5 F 85 18 131/74 H 97 05/11/19 12:20 05/11/19 12:20 05/11/19 12:20 05/11/19 12:20 05/11/19 12:20 - Notes Notes: PHYSICAL EXAMINATION: Physical Exam: General: Well-nourished well-developed 74-year-old man in mild acute distress HEENT: NC/AT, pupils equal round and reactive to light, MM moist,nares clear, oropharynx clear, airway patent Neck: supple, no adenopathy, no masses. Good range of motion Lungs: clear, no wheezing, no rales no rhonchi CVS: Regular rate and rhythm no murmur gallop or rub Abdomen: Soft, active, nontender, no masses, no hepatosplenomegaly Ext: No edema, clubbing or cyanosis. Neuro: Alert and responsive, moving all 4 extremities on command, cranial nerves intact, no focal findings Skin: Intact no open lesions, no rash PSYCH: Normal mood, normal affect. Course - Re-evaluation Re-evalutation: 05/11/19 16:55 Patient with a 3mm right ureter stone mild hydronephrosis on a CT scan performed on 05/08/2022. He returns to the emergency department today with a complaint of continued pain and so far not having passed a kidney stone. A repeat CT scan was performed and shows that the stone has progressed to the UVJ on the right side with moderate hydroureteronephrosis. Remainder of his labs, urinalysis and electrolytes are normal. I discussed progression of the stone with the patient and explained that he is showing signs of improvement and is likely to pass this 3 mm stone. I am giving him the name of a urologist to follow-up with as an outpatient if needed. The patient and his are in agreement with that plan. - Vital Signs Vital signs: Temp Pulse Resp BP Pulse Ox 97.5 F 85 18 131/74 H 97 05/11/19 12:20 05/11/19 12:20 05/11/19 12:20 05/11/19 12:20 05/11/19 12:20 - Laboratory Result Diagrams: 05/11/19 12:35 05/11/19 12:35 Laboratory results interpreted by me: 05/11/19 05/11/19 12:35 12:35 RBC 3.88 L Hgb 11.0 L Hct 33.6 L RDW 18.9 H Lymph % (Auto) 8.5 L Seg Neutrophils % 79.6 H Creatinine 1.80 H Est GFR ( Amer) 45 L Est GFR (MDRD) Non-Af 37 L Glucose 167 H Alkaline Phosphatase 283 H Lipase < 10.0 L Discharge - Discharge Clinical Impression: Right ureteral stone, Renal colic on right side Condition: Good Disposition: HOME, SELF-CARE Instructions: Kidney Stone ([facility]) Additional Instructions: You have a history of a kidney stone and the CT scan today shows a progression of the stone toward passing. It is at the junction of the ureter and the bladder. Please continue the medications that you are given on Saturday. You may follow-up with the urologist if you are continuing to have difficulties or require further treatment. If your pain becomes more severe or if you have fever, you may return to the emergency department for further evaluation. Referrals: MARIKA RIGGS MD [Primary Care Provider] - Follow up as needed TANIKA KEY MD [NO LOCAL MD] - Follow up as needed
[2019-05-11 17:10] VITALS: BP 100/64
== END 2019-05-11 17:09 | disposition home or self-care (01) ==
LOC: ER 11:36
DX: N13.2 Hydronephrosis with renal and ureteral calculous obstruction (principal); R10.9 Unspecified abdominal pain; E78.00 Pure hypercholesterolemia, unspecified; I10 Essential (primary) hypertension; Z87.442 Personal history of urinary calculi; Z96.642 Presence of left artificial hip joint
CPT/HCPCS: 99284; 96361; 96374; 36415; 83690; 85025; 80053; 81001; 74176; J1885; J7030

== ENCOUNTER → 2019-07-13 | Outpatient (CLI) | payer MEDICARE, BC ==
--- NOTE | 2019-07-13 10:00 | RADIOLOGY REPORT (SQ) ---
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 TECHNIQUE: CT scan of the chest performed using helical scanning technique with dynamic intravenous contrast injection. Images reviewed with lung, soft tissue and bone windows. Reconstructed coronal and sagittal MPR and MIP images reviewed. All images stored on PACS. All CT scanners at this facility use dose modulation, iterative reconstruction, and/or weight based d osing when appropriate to reduce radiation dose to as low as reasonably achievable (ALARA). [facility]: Dose Right [facility]: CareDose [facility]: Dose Right [facility]: Teradose 4D [facility]: [employer] CONTRAST TYPE AND DOSE: 99 mL Omnipaque 350- low osmolar. RENAL FUNCTION: Creatinine 0.9 milligrams/deciliter. LIMITATIONS: None. FINDINGS: LUNGS AND PLEURA: Unchanged calcified pleural plaques - correlate for asbestos exposure. The 7 mm subpleural nodule in the lingula (image 75 of series 6) and the 5 mm perifissural nodule in the right lower lobe (image 68 of series 6) are unchanged. There is no acute consolidation, ground-g lass opacification, pleural effusion or new /enlarging pulmonary nodule. HILAR AND MEDIASTINAL STRUCTURES: No adenopathy or mass. HEART AND VASCULAR STRUCTURES: Standard 3 vessel arch. There is no thoracic aortic dissection or ane urysm. There is mild cardiomegaly and [id number] atherosclerotic calcification of the coronary arteries. There is no pericardial effusion. HARDWARE: The tip of the left subclavian vein approach single-lumen port terminates within the SVC. UPPER ABDOMEN: Refer to the separate report of the CT of the abdomen. THYROID AND OTHER SOFT TISSUES: No mass or adenopathy. BONES: No fracture or osseous lesion. OTHER: No other finding. IMPRESSION: No evidence metastatic disease. Other chronic/ unchanged findings as detailed above. TECHNICAL DOCUMENTATION: JOB ID: [id number] Quality ID # [id number]: Final reports with documentation of one or more dose reduction techniques (e.g., Au tomated exposure control, adjustment of the mA and/or kV according to patient size, use of iterative reconstruction technique) 2010 [employer]- All Rights Reserved Reading location - IP/workstation name: [email or web address]
--- NOTE | 2019-07-13 10:21 | RADIOLOGY REPORT (SQ) ---
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 TECHNIQUE: CT scan of the abdomen and pelvis performed using helical scanning technique with dynamic intravenous contrast injection. No oral contrast. Images reviewed with lung, soft tissue, and bone windows. Reconstructed coronal and sagittal MPR images reviewed. Delayed images for evaluation of the urinary system also acquired. All images stored on PACS. All CT scanners at this facility use dose modulation, iterative reconstruction, and/or weight based d osing when appropriate to reduce radiation dose to as low as reasonably achievable (ALARA). [facility]: Dose Right [facility]: CareDose [facility]: Dose Right [facility]: Teradose 4D [facility]: [employer] CONTRAST TYPE AND DOSE: Contrast/concentration: Isovue 350.00 mg/ml; Total Contrast Delivered: 99.0 ml; Total Saline Delivered: 72.0 ml RENAL FUNCTION: Creatinine 0.9 milligrams/deciliter. RADIATION DOSE: CT Rad equipment meets quality standard of care and radiation dose reduction techniq ues were employed. CTDIvol: 8.8 - 9.9 mGy. DLP: 1426 mGy-cm.. LIMITATIONS: None. FINDINGS: LOWER CHEST: Refer to the separate report of the CT of the chest. LIVER: The morphology of the liver is noncirrhotic. The relative hypoattenuation of the hepatic pare nchyma compared to the splenic parenchyma on the portal venous phase is suggestive of hepatic steatos is. The ovoid hypodense lesion with surrounding hyperemia within segment 2 of the liver (image 13 of series 3) has decreased in size and it measures 2.4 x 1.5 cm compared to 4.7 x 2 cm on the prior CT. There is a new ovoid hypodense lesion with surrounding hyperemia within the gallbladder fossa that measures 2.8 x 1.5 cm. SPLEEN: No splenomegaly or splenic mass. PANCREAS: Status post Whipple. GALLBLADDER: Status post cholecystectomy. ADRENAL GLANDS: No mass or asymmetry. RIGHT KIDNEY AND URETER: The hyperdense exophytic lesion that arises from the posterior cortex of the upper pole and measures 1.6 x 1.3 cm (image 28 of series 3) is unchanged. There are several calicea l calculi without associated hydronephrosis, hydroureter or ureterolithiasis. LEFT KIDNEY AND URETER: There are several caliceal calculi without associated hydronephrosis, hydro u reter or ureterolithiasis. There is no solid mass. AORTA AND VESSELS: No aneurysm or dissection of the abdominal aorta. RETROPERITONEUM: No retroperitoneal adenopathy, hemorrhage or mass. BOWEL AND PERITONEAL CAVITY: Colonic diverticulosis without diverticulitis. There is no bowel obstru ction, bowel wall thickening or pericolonic/ perienteric inflammation. There is no mesenteric adenop athy, free intraperitoneal fluid or mesenteric/ omental inflammation. APPENDIX: Normal. PELVIS: The prostate gland is enlarged. Evaluation of the urinary bladder is limited due to the zayra fact from the left hip prosthesis hardware. ABDOMINAL WALL: Right inguinal hernia and hydrocele. BONES: Degenerative spondylosis and facet arthropathy of the lumbar spine. There is no fracture or o sseous lesion. OTHER: No other finding. IMPRESSION: 1. Status post Whipple. The ovoid hypodense lesion with surrounding hyperemia within se gment 2 of the liver (image 13 of series 3) has decreased in size and it measures 2.4 x 1.5 cm compar ed to 4.7 x 2 cm on the prior CT. There is a new similar lesion within the gallbladder fossa that me asures 2.8 x 1.5 cm - given the decrease in the size of the segment 2 lesion an infectious rather myah n a malignant etiology is suspected. 2. Other secondary findings as detailed above. TECHNICAL DOCUMENTATION: JOB ID: [id number] Quality ID # 436: Final reports with documentation of one or more dose reduction techniques (e.g., Au tomated exposure control, adjustment of the mA and/or kV according to patient size, use of iterative reconstruction technique) 2010 [employer]- All Rights Reserved Reading location - IP/workstation name: [email or web address]
== END ==
LOC: RAD 07:58
PROVIDERS: ATTEND Internal Medicine
DX: C25.0 Malignant neoplasm of head of pancreas (principal)
CPT/HCPCS: 71260; 74177; 82565

== ENCOUNTER → 2019-11-24 | Outpatient (CLI) | payer MEDICARE, BC ==
--- NOTE | 2019-11-24 13:24 | RADIOLOGY REPORT (SQ) ---
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 Images reviewed with lung, soft tissue and bone windows. Reconstructed coronal and sagittal MPR and MIP images reviewed. All images stored on PACS. All CT scanners at this facility use dose modulation, iterative reconstruction, and/or weight based d osing when appropriate to reduce radiation dose to as low as reasonably achievable (ALARA). [facility]: Dose Right [facility]: CareDose [facility]: Dose Right [facility]: Teradose 4D [facility]: [employer] RENAL FUNCTION: GFR > 60. RADIATION DOSE: CT Rad equipment meets quality standard of care and radiation dose reduction techniq ues were employed. CTDIvol: 8.5 - 11.2 mGy. DLP: 1561 mGy-cm. . LIMITATIONS: None. FINDINGS: LUNGS AND PLEURA: Calcified pleural plaques. Image 74, unchanged 5 mm ground-glass nodule right lower lobe. On image 82, unchanged 7 mm ground-glass nodule in the lingula. HILAR AND MEDIASTINAL STRUCTURES: No identified masses or abnormal nodes. HEART AND VASCULAR STRUCTURES: No aneurysm or dissection. No central pulmonary emboli. No pericardi al effusion. HARDWARE: None in the chest. UPPER ABDOMEN: See separate report of the CT of the abdomen. THYROID AND OTHER SOFT TISSUES: No masses. No adenopathy. BONES: No acute findings. OTHER: Left-sided port tip in the SVC. IMPRESSION: Stable small pulmonary nodules. TECHNICAL DOCUMENTATION: JOB ID: [id number] Quality ID # [id number]: Final reports with documentation of one or more dose reduction techniques (e.g., Au tomated exposure control, adjustment of the mA and/or kV according to patient size, use of iterative reconstruction technique) 2010 [employer]- All Rights Reserved Reading location - IP/workstation name: [email or web address]
--- NOTE | 2019-11-24 13:38 | RADIOLOGY REPORT (SQ) ---
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 No oral contrast. Images reviewed with lung, soft tissue, and bone windows. Reconstructed coronal and sagittal MPR images reviewed. Delayed images for evaluation of the urinary system also acquired. All images stored on PACS. All CT scanners at this facility use dose modulation, iterative reconstruction, and/or weight based d osing when appropriate to reduce radiation dose to as low as reasonably achievable (ALARA). [facility]: Dose Right [facility]: CareDose [facility]: Dose Right [facility]: Teradose 4D [facility]: [employer] CONTRAST TYPE AND DOSE: contrast/concentration: Isovue 350.00 mmol/ml; Total Contrast Delivered: 98. 0 ml; Total Saline Delivered: 70.0 ml RENAL FUNCTION: GFR > 60. RADIATION DOSE: . LIMITATIONS: Artifact from left hip arthroplasty. FINDINGS: LOWER CHEST: See separate report of the CT of the chest. LIVER: Previously described low-density lesions no longer visualized. SPLEEN: Normal size. No focal lesions. PANCREAS: Prior Whipple. GALLBLADDER: Surgically absent. ADRENAL GLANDS: No significant masses or asymmetry. RIGHT KIDNEY AND URETER: No solid masses. Nonobstructing renal calculi. No hydronephrosis or hydr oureter. LEFT KIDNEY AND URETER: No solid masses. Nonobstructing renal calculi. No hydronephrosis or hydro ureter. AORTA AND VESSELS: No aneurysm. RETROPERITONEUM: No retroperitoneal adenopathy, hemorrhage or masses. BOWEL AND PERITONEAL CAVITY: No masses or inflammatory changes. No free fluid or peritoneal masses. APPENDIX: Not visualized. PELVIS: No mass. No free fluid. Normal bladder. Right hydrocele. ABDOMINAL WALL: No masses. No hernias. BONES: Nothing acute. OTHER: No other significant finding. IMPRESSION: Favorable response to therapy. No evidence of metastatic disease. TECHNICAL DOCUMENTATION: JOB ID: [id number] Quality ID # 436: Final reports with documentation of one or more dose reduction techniques (e.g., Au tomated exposure control, adjustment of the mA and/or kV according to patient size, use of iterative reconstruction technique) 2010 [employer]- All Rights Reserved Reading location - IP/workstation name: [email or web address]
== END ==
LOC: RAD 08:00
PROVIDERS: ATTEND Internal Medicine
DX: C25.0 Malignant neoplasm of head of pancreas (principal)
CPT/HCPCS: 71260; 74177; 82565

== ENCOUNTER → 2020-03-09 | Outpatient (CLI) | payer MEDICARE, BC ==
--- NOTE | 2020-03-09 12:31 | RADIOLOGY REPORT (SQ) ---
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 CONTRAST TYPE AND DOSE: 20 mL Prohance. RENAL FUNCTION: Not indicated. ACR Type II contrast agent associated with few, if any, unconfounded cases of NSF LIMITATIONS: None. FINDINGS: LIVER: 2 areas of abnormal signal intensity in the liver. 1 in the right lobe near the do me best demonstrated on series 104 image 9. This measures 2.3 cm in greatest diameter. The 2nd in t he periphery of the right lobe best demonstrated on series 104, image 32. This measures approximatel y 3.5 cm in greatest diameter. These both demonstrate high signal intensity on T2 weighted images. Both demonstrate enhancement. The lesion previously described in the left lobe of liver back in Apri l 2019 is no longer identified. SPLEEN: Normal size. No focal lesions. PANCREAS: Prior will pull procedure. GALLBLADDER: Surgically absent. ADRENAL GLANDS: No significant masses or asymmetry. RIGHT KIDNEY AND URETER: No masses. No hydronephrosis. LEFT KIDNEY AND URETER: No masses. No hydronephrosis. AORTA AND VESSELS: No aneurysm. No dissection. Renal arteries, SMA, celiac without stenosis. RETROPERITONEUM: No retroperitoneal adenopathy, hemorrhage or masses. BOWEL: No visualized masses. No inflammation. No significant dilatation. ABDOMINAL WALL AND PERITONEUM: No hernias. No free fluid. BONES: No acute or significant findings. OTHER: No other significant finding. IMPRESSION: 2 separate lesions in the right lobe of liver as described consistent with metastatic di sease. TECHNICAL DOCUMENTATION: JOB ID: [id number] 2010 [employer]- All Rights Reserved Reading location - IP/workstation name: [email or web address]
== END ==
LOC: RAD 09:01
PROVIDERS: ATTEND Internal Medicine
DX: C25.0 Malignant neoplasm of head of pancreas (principal)
CPT/HCPCS: 82565; 74183; A9576

== ENCOUNTER 2020-03-17 11:41 | Emergency (ER) | payer MEDICARE, BC ==
--- NOTE | 2020-03-17 13:14 | ER Document Report ---
ED Medical Screen (RME) - General Chief Complaint: Flank Pain Stated Complaint: RIGHT SIDE PAIN Time Seen by Provider: 03/17/20 13:10 Primary Care Provider: CONSTANCE BULLARD MD [Primary Care Provider] - Follow up as needed Notes: Patient presents complaining of right lateral side pain that started yesterday. Patient denies any fever or urinary symptoms. Patient denies any nausea vomiting diarrhea. Patient is currently undergoing chemotherapy treatment for a liver lesion due to his initial pancreatic cancer. Patient has had a previous Whipple procedure. I have greeted and performed a rapid initial assessment of this patient. A comprehensive ED assessment and evaluation of the patient, analysis of test results and completion of the medical decision making process will be conducted by additional ED providers. TRAVEL OUTSIDE OF THE [place] IN LAST 30 DAYS: No - Related Data Allergies/Adverse Reactions: No Known Allergies Allergy (Verified 01/06/18 06:05) Past Medical History - Past Medical History Cardiac Medical History: Reports: Hx Hypercholesterolemia, Hx Hypertension - ON MEDS Denies: Hx Atrial Fibrillation, Hx Congestive Heart Failure, Hx Coronary Artery Disease, Hx Heart Attack, Hx Peripheral Vascular Disease, Hx Heart Murmur Pulmonary Medical History: Reports: Hx Pneumonia - 30 YEARS AGO Denies: Hx Asthma, Hx Bronchitis, Hx COPD, Hx Tuberculosis Neurological Medical History: Denies: Hx Cerebrovascular Accident, Hx Seizures Endocrine Medical History: Renal/ Medical History: Malignancy Medical History: GI Medical History: Denies: Hx Hepatitis, Hx Hiatal Hernia, Hx Ulcer Musculoskeltal Medical History: Reports Hx Arthritis - MILD Psychiatric Medical History: Traumatic Medical History: Infectious Medical History: Denies: Hx Hepatitis Past Surgical History: Reports: Hx Herniorrhaphy - Lt inguinal hernia, Hx Orthopedic Surgery - left shoulder, left hip replacement 06/04/11. Denies: Hx A ppendectomy, Hx Bowel Surgery, Hx Cholecystectomy, Hx Coronary Artery Bypass Graft, Hx Gastric Bypass Surgery, Hx Open Heart Surgery, Hx Pacemaker, Hx Tonsillectomy - Immunizations Hx Diphtheria, Pertussis, Tetanus Vaccination: Yes Physical Exam - Abdominal Tenderness: Tender - Right lateral side tenderness Doctor's Discharge - Discharge Referrals: CONSTANCE BULLARD MD [Primary Care Provider] - Follow up as needed
[2020-03-17 13:52] LABS: ABSOLUTE EOSINOPHILS # (AUTO) 0.4 10^3/uL (0.0-0.6); ABSOLUTE LYMPHOCYTES (AUTO) 0.9 10^3/uL (0.5-4.7); ABSOLUTE MONOCYTES (AUTO) 0.1 10^3/uL (0.1-1.4); ABSOLUTE NEUT (AUTO) 7.5 10^3/uL (1.7-8.2); BASOPHILS % (AUTO) 0.5 % (0-2); EOSINOPHILS % (AUTO) 4.1 % (0-6); HEMATOCRIT 30.2 % (37.9-51.0); HEMOGLOBIN 10.3 g/dL (13.5-17.0); LYMPHOCYTES % (AUTO) 9.6 % (13-45); MEAN CORPUSCULAR HEMOGLOBIN 30.8 pg (27.0-33.4); MEAN CORPUSCULAR HGB CONC 34.2 g/dL (32.0-36.0); MEAN CORPUSCULAR VOLUME 90 fl (80-97); PLATELET COUNT 207 10^3/uL (150-450); RED BLOOD COUNT 3.36 10^6/uL (4.35-5.55); RED CELL DISTRIBUTION WIDTH 14.4 % (11.5-14.0); SEGMENTED NEUTROPHILS % (AUTO) 84.8 % (42-78); TOTAL CELLS COUNTED % (AUTO) 100 %; WHITE BLOOD COUNT 8.9 10^3/uL (4.0-10.5)
[2020-03-17 13:55] LABS: APPEARANCE,URINE CLEAR; BILIRUBIN,URINE NEGATIVE (NEGATIVE); COLOR,URINE COLORLESS; GLUCOSE, URINE 50 mg/dL (NEGATIVE); KETONES,URINE NEGATIVE (NEGATIVE); PROTEIN,URINE NEGATIVE (NEGATIVE); URINE SPECIFIC GRAVITY 1.012
[2020-03-17 13:56] LABS: LEUKOCYTE ESTERASE,URINE NEGATIVE (NEGATIVE); NITRITE,URINE NEGATIVE (NEGATIVE); UROBILINOGEN,URINE NEGATIVE mg/dL (<2.0)
[2020-03-17 14:13] LABS: ALBUMIN 3.7 g/dL (3.5-5.0); ALKALINE PHOSPHATASE 150 U/L (38-126); ANION GAP 6 (5-19); ASPARTATE AMINO TRANSFERASE 42 U/L (17-59); BILIRUBIN,DIRECT 0.2 mg/dL (0.0-0.4); BILIRUBIN,TOTAL 0.8 mg/dL (0.2-1.3); BLOOD UREA NITROGEN 16 mg/dL (7-20); CALCIUM 8.8 mg/dL (8.4-10.2); CARBON DIOXIDE 30 mmol/L (22-30); CHLORIDE 101 mmol/L (98-107); GLUCOSE 148 mg/dL (75-110); POTASSIUM 4.3 mmol/L (3.6-5.0); TOTAL PROTEIN 6.5 g/dL (6.3-8.2)
--- NOTE | 2020-03-17 17:14 | ER Document Report ---
ED General - General Chief Complaint: Flank Pain Stated Complaint: RIGHT SIDE PAIN Time Seen by Provider: 03/17/20 13:10 Primary Care Provider: CONSTANCE BULLARD MD [Primary Care Provider] - Follow up as needed TRAVEL OUTSIDE OF THE [place] IN LAST 30 DAYS: No - HPI Notes: 74-year-old male presents with abdominal pain. Patient states that he has had a focal area of pain to the right side of his abdomen, onset yesterday, has been constant and steady, it is not severe, worse with touching the area. No nausea, vomiting, diarrhea. Has been otherwise tolerating p.o. Patient has a history of pancreatic cancer status post Whipple, he has 2 liver mets and is undergoing active chemotherapy, he last had chemotherapy this Saturday. - Related Data Allergies/Adverse Reactions: No Known Allergies Allergy (Verified 01/06/18 06:05) Past Medical History - General Information source: Patient - Social History Smoking Status: Unknown if Ever Smoked Family History: COPD - Past Medical History Cardiac Medical History: Reports: Hx Hypercholesterolemia, Hx Hypertension - ON MEDS Denies: Hx Atrial Fibrillation, Hx Congestive Heart Failure, Hx Coronary Artery Disease, Hx Heart Attack, Hx Peripheral Vascular Disease, Hx Heart Murmur Pulmonary Medical History: Reports: Hx Pneumonia - 30 YEARS AGO Denies: Hx Asthma, Hx Bronchitis, Hx COPD, Hx Tuberculosis Neurological Medical History: Denies: Hx Cerebrovascular Accident, Hx Seizures Endocrine Medical History: Renal/ Medical History: Malignancy Medical History: GI Medical History: Denies: Hx Hepatitis, Hx Hiatal Hernia, Hx Ulcer Musculoskeletal Medical History: Reports Hx Arthritis - MILD Psychiatric Medical History: Traumatic Medical History: Infectious Medical History: Denies: Hx Hepatitis Past Surgical History: Reports: Hx Herniorrhaphy - Lt inguinal hernia, Hx Orthopedic Surgery - left shoulder, left hip replacement 06/04/11. Denies: Hx Appendectomy, Hx Bowel Surgery, Hx Cholecystectomy, Hx Coronary Artery Bypass Graft, Hx Gastric Bypass Surgery, Hx Open Heart Surgery, Hx Pacemaker, Hx Tonsillectomy - Immunizations Hx Diphtheria, Pertussis, Tetanus Vaccination: Yes Hx Pneumococcal Vaccination: 03/18/14 Review of Systems - Review of Systems Constitutional: denies: Fever EENT: No symptoms reported Cardiovascular: denies: Chest pain Respiratory: denies: Short of breath Gastrointestinal: See HPI Genitourinary: No symptoms reported Male Genitourinary: No symptoms reported Musculoskeletal: No symptoms reported Skin: No symptoms reported Hematologic/Lymphatic: Other - On chemo Neurological/Psychological: No symptoms reported Physical Exam - Vital signs Vitals: Temp Pulse Resp BP Pulse Ox 98.3 F 80 18 125/66 97 03/17/20 11:57 03/17/20 11:57 03/17/20 11:57 03/17/20 11:57 03/17/20 11:57 - General General appearance: Appears well, Alert In distress: None - HEENT Head: Normocephalic, Atraumatic Eyes: No: Scleral icterus Extraocular movements intact: Yes Pupils: PERRL - Respiratory Breath sounds: Normal - Cardiovascular Rhythm: Regular Heart sounds: Normal auscultation - Abdominal Distension: No distension Bowel sounds: Normal Tenderness: Tender - Superficial, somewhat localized area of tenderness to right middle quadrant. No: Guarding, Rebound - Extremities General lower extremity: No: Edema - Neurological Neuro grossly intact: Yes Cognition: Normal Orientation: AAOx4 - Psychological Associated symptoms: Normal affect - Skin Skin Temperature: Warm Course - Re-evaluation Re-evalutation: 74-year-old male history pancreatic cancer status post Whipple, on active chemotherapy for 2 liver mets here with focal area of right middle quadrant tenderness, onset yesterday. Abdomen exam is relatively benign, small focal area of tenderness. Abdomen is overall nonperitoneal. He is alert and well- appearing, hemodynamically stable. Have ordered CT abdomen based on his history to essentially rule out any sort of occult infection or evidence of possible bleeding from the mets. Discussed with him possibly could be musculoskeletal origin for constipation. Laboratory evaluation done to the triage process is essentially unremarkable. 03/17/20 19:07 CT abdomen has resulted. Per radiology there are no acute findings. Has bilateral intrarenal calculi and evidence of constipation. Known liver mets. Hernia with unobstructed bowel. Patient was updated on reassuring results. He is looking forward to going home. Return precautions given, stable at time of discharge. - Vital Signs Vital signs: Temp Pulse Resp BP Pulse Ox 98.3 F 77 18 117/64 96 03/17/20 11:57 03/17/20 19:13 03/17/20 11:57 03/17/20 19:13 03/17/20 19:13 - Laboratory Results Result Diagrams: 03/17/20 13:25 03/17/20 13:25 Laboratory Results Interpreted: 03/17/20 03/17/20 03/17/20 13:25 13:25 13:25 RBC 3.36 L Hgb 10.3 L Hct 30.2 L RDW 14.4 H Lymph % (Auto) 9.6 L [place] % (Auto) 1.0 L Seg Neutrophils % 84.8 H Glucose 148 H Alkaline Phosphatase 150 H Lipase < 10.0 L Urine Glucose (UA) 50 H Critical Laboratory Results Reviewed: No Critical Results - Radiology Results Critical Radiology Results Reviewed: No Critical Results Discharge - Discharge Clinical Impression: Right sided abdominal pain Disposition: HOME, SELF-CARE Additional Instructions: Consider taking medications to ease constipation, Colace/MiraLAX are good options, be sure to drink plenty of fluids. Please have close follow-up with oncology. Return to the emergency department for any concerning worsening symptoms. Referrals: CONSTANCE BULLARD MD [Primary Care Provider] - Follow up as needed
[2020-03-17] MEDS ORDERED: HYDROCODONE/ACETAMINOPHEN 5-325 MG TABLET PO ONE (17:24)
--- NOTE | 2020-03-17 18:53 | RADIOLOGY REPORT (SQ) ---
EXAM DESCRIPTION: CT ABD/PELVIS WITH IV ONLY IMAGES COMPLETED DATE/TIME: 03/17/2020 6:34 pm REASON FOR STUDY: RUQ+flank pain, s/p Whipple, liver mets COMPARISON: 11/24/2019 02/20/2019 TECHNIQUE: CT scan of the abdomen and pelvis performed using helical scanning technique with dynamic intravenous contrast injection. No oral contrast. Images reviewed with lung, soft tissue, and bone windows. Reconstructed coronal and sagittal MPR images reviewed. Delayed images for evaluation of the urinary system also acquired. All images stored on PACS. All CT scanners at this facility use dose modulation, iterative reconstruction, and/or weight based d osing when appropriate to reduce radiation dose to as low as reasonably achievable (ALARA). [facility]: Dose Right [facility]: CareDose [facility]: Dose Right [facility]: Teradose 4D [facility]: Softfront CONTRAST TYPE AND DOSE: contrast/concentration: Isovue 350.00 mmol/ml; Total Contrast Delivered: 100 .0 ml; Total Saline Delivered: 72.0 ml RENAL FUNCTION: BUN 16 creatinine 0.86 RADIATION DOSE: CT Rad equipment meets quality standard of care and radiation dose reduction techniq ues were employed. CTDIvol: 9.6 - 9.6 mGy. DLP: 1039 mGy-cm.. LIMITATIONS: None. FINDINGS: LOWER CHEST: Pleural calcifications. LIVER: There is a subcapsular 4 cm lesion in the right lobe of the liver with thick peripheral enhanc ement. There is a smaller lesion in the dome of the liver that is low in density and shows less enha ncement. Both of these lesions are not seen on the prior study from 2018. There is only a faint sug gestion of the larger lesion in the right lobe on the study from 11/24/2019. SPLEEN: Normal size. No focal lesions. PANCREAS: Prior Whipple procedure. GALLBLADDER: Surgically absent. ADRENAL GLANDS: No significant masses or asymmetry. RIGHT KIDNEY AND URETER: No solid masses. Nonobstructing intrarenal calculi. No ureteral stone or obstruction. No hydronephrosis or hydroureter. LEFT KIDNEY AND URETER: No solid masses. Nonobstructing intrarenal calculi. No ureteral stone or o bstruction. No hydronephrosis or hydroureter. AORTA AND VESSELS: No aneurysm. No dissection. Renal arteries, SMA, celiac without stenosis. RETROPERITONEUM: No retroperitoneal adenopathy, hemorrhage or masses. BOWEL AND PERITONEAL CAVITY: Retained stool. No obvious bowel mass. APPENDIX: Normal. PELVIS: No mass. No free fluid. Normal bladder. ABDOMINAL WALL: Paraumbilical hernia containing unobstructed bowel. BONES: No significant or acute findings. OTHER: No other significant finding. IMPRESSION: 1. Metastatic disease in the liver. The appearance represents a change from the earlie r studies. 2. Bilateral intrarenal calculi. 3. Constipation. 4. Paraumbilical hernia as described. 5. Pleural calcifications. TECHNICAL DOCUMENTATION: JOB ID: [id number] Quality ID # [id number]: Final reports with documentation of one or more dose reduction techniques (e.g., Au tomated exposure control, adjustment of the mA and/or kV according to patient size, use of iterative reconstruction technique) 2010 [employer]- All Rights Reserved Reading location - IP/workstation name: [email or web address]
[2020-03-17 19:14] VITALS: BP 117/64
== END 2020-03-17 19:30 | disposition home or self-care (01) ==
LOC: ER 11:41
DX: R10.9 Unspecified abdominal pain (principal); C78.7 Secondary malignant neoplasm of liver and intrahepatic bile duct; E78.00 Pure hypercholesterolemia, unspecified; I10 Essential (primary) hypertension; Z85.07 Personal history of malignant neoplasm of pancreas; Z79.899 Other long term (current) drug therapy
CPT/HCPCS: 99285; 36415; 83690; 85025; 80053; 81001; 74177; A9270